=== PATIENT | male | born 2005 | race Caucasian/White ===

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

== ENCOUNTER 2024-07-11 23:06 | Emergency (ER) | payer OTHER, SELFPAY ==
--- NOTE | ~2024-07-11 | XR_ITS ---
EXAMINATION: XR shoulder RT min 2V DATE: 07/12/2024 01:27 INDICATION: Postreduction right glenoid humeral dislocation TECHNIQUE: AP, Grashey and transscapular Y views of the right shoulder were obtained. COMPARISON: None FINDINGS: Successful reduction of the previously anteriorly dislocated right glenohumeral joint which is now in normal alignment. No fracture. Again seen are lucencies along the anterior glenoid suggesting prior labral repair. Acromioclavicular joint is normal. Soft tissues are unremarkable. Right lung is clear no pleural effusion or pneumothorax. IMPRESSION: Successful reduction to normal alignment of the previously dislocated right glenohumeral joint. Reviewed, dictated and finalized at location A. D DOUGH MIXER IMPRESSION: Successful reduction to normal alignment of the previously dislocated right gle nohumeral joint.
--- NOTE | ~2024-07-11 | XR_ITS ---
EXAMINATION: XR shoulder RT min 2V DATE: 07/12/2024 00:30 INDICATION: Right shoulder dislocation TECHNIQUE: AP, Grashey and transscapular Y views of the right shoulder were obtained. COMPARISON: Right shoulder MRI dated 09/09/2021 FINDINGS: There is anterior dislocation of the right glenohumeral joint. No acute fractures identified. There a re lucencies projecting over the anterior right glenoid suggesting prior repair of a torn labrum iden tified on prior MRI. Acromioclavicular joint is normal. IMPRESSION: 1. Anterior right glenohumeral dislocation with changes of likely prior anterior labral repair. Reviewed, dictated and finalized at location A. INE PRINTER HOSE IMPRESSION: 1. Anterior right glenohumeral dislocation with changes of likely prior anterio r labral repair.
[2024-07-11 23:11] VITALS: BP 134/77; PULSE 99; RESP 16; TEMP 36.8; O2SAT 96
[2024-07-12] MEDS: HYDROcodone/acetaminophen (*CRX) 5-325 MG TABLET 1 TAB PO (01:02)
[2024-07-12] MEDS: LIDO 1%/EPINEPHRINE 1:100,000 20 ML VIAL 10 ML INFILTRATE (01:07)
--- NOTE | 2024-07-12 01:12 | PC.NURSE ---
Time out completed at bedside with patient prior to block.
--- NOTE | 2024-07-12 01:34 | ED.GENADULT ---
HPI - General Adult General Chief complaint: Extremity Injury, Upper Stated complaint: r shoulder injury Time Seen by Provider: 07/12/24 00:56 History of Present Illness HPI narrative: This is a 19-year-old male presenting with right shoulder pain. Patient was pretend fighting and through fake punch and then felt shoulder fall out of position. He has had this happen before during a hockey game. No other injuries. No weakness to the hand. Related Data Allergies Allergy/AdvReac Type Severity Reaction Status Date / Time No Known Allergies Allergy Verified 07/11/24 23:06 Exam Narrative: APPEARANCE: No apparent distress. Head: atraumatic. EYES: EOMI, NOSE: Atraumatic NECK: Trachea midline RESPIRATORY: No increased rate of breathing CARDIOVASCULAR: RRR, ABDOMINAL: Non-distended MUSCULOSKELETAl: Patient is holding his right arm lymph against his body, concave deformity of the anterior shoulder, no numbness over the lateral deltoid, Radian ulnar median nerve distributions intact. Pulses intact. NEURO: Alert. Moving 4/4 extremities SKIN:: Warm, dry. Normal color PSYCHIATRIC: Normal affect Course Vital Signs Vital signs: Vital Signs Temperature 98.2 F 07/11/24 23:11 Pulse Rate 99 07/11/24 23:11 Respiratory Rate 16 07/11/24 23:11 Blood Pressure 134/77 07/11/24 23:11 Pulse Oximetry 96 07/11/24 23:11 Oxygen Delivery Room Air 07/11/24 23:11 Temperature 98.2 F 07/11/24 23:11 Pulse Rate 99 07/11/24 23:11 Respiratory Rate 16 07/11/24 23:11 Blood Pressure 134/77 07/11/24 23:11 Pulse Oximetry 96 07/11/24 23:11 Oxygen Delivery Room Air 07/11/24 23:11 Procedures Orthopedic Joint Reduction Joint #1: Orthopedic Joint Reduction Date: 07/12/24 Time Out Performed: Yes Side: right Joint Reduction Location: shoulder Analgesia: nerve block Pre-Procedure Neuro Vascular Exam: normal Local Anesthesia: lidocaine 1% and with epi Amount of anesthesic used (mL): 5 Shoulder Technique Used (if applicable): traction/counter-traction Technique used: traction/counter-traction Post-reduction neuro exam: intact Post-reduction vascular: intact Post Reduction X-Ray Obtained: Yes Post Reduction X-Ray Results: reduced Splint Applied: Yes Patient Tolerated Procedure: well Medical Decision Making [facility] Narrative Medical decision making narrative: -Course: 19-year-old male presenting with shoulder dislocation. His interscalene block performed shoulder was reduced using traction counter traction. Patient tolerated procedure well he has no complications or neurologic deficits. Patient discharged with follow-up. Vital Signs Vital Signs: Vital Signs Temperature 98.2 F 07/11/24 23:11 Pulse Rate 99 07/11/24 23:11 Respiratory Rate 16 07/11/24 23:11 Blood Pressure 134/77 07/11/24 23:11 Pulse Oximetry 96 07/11/24 23:11 Oxygen Delivery Room Air 07/11/24 23:11 Temperature 98.2 F 07/11/24 23:11 Pulse Rate 99 07/11/24 23:11 Respiratory Rate 16 07/11/24 23:11 Blood Pressure 134/77 07/11/24 23:11 Pulse Oximetry 96 07/11/24 23:11 Oxygen Delivery Room Air 07/11/24 23:11 Discharge Plan Discharge Clinical Impression: Dislocation of shoulder region Patient Disposition: Home, Self-Care Condition: Stable Instructions: Antibiotic Form, Shoulder Dislocation (ED) Additional Instructions: Please use Motrin Tylenol Robaxin for pain control. Please follow-up with your orthopedic surgeon in 1 week for re-evaluation. Do not use your arm until cleared by Orthopedic surgery. Patient Language: Kazakh Prescriptions: New ibuprofen 800 mg tablet 800 mg PO TID PRN (Reason: pain) 7 Days Qty: 21 0RF acetaminophen 500 mg tablet 1,000 mg PO TID PRN (Reason: olayinka) 7 Days Qty: 42 0RF methocarbamol 750 mg tablet 1,500 mg PO TID Qty: 35 0RF Follow-up/Referrals: Corky Ingram MD [Physician] - 1 Week (Shoulder dislocation ) Andrew Mcbride MD [Primary Care Provider] -
[2024-07-12 02:11] VITALS: BP 131/71; PULSE 104; RESP 18; O2SAT 97
--- OUTSIDE RECORDS SUMMARY | 2024-07-19 01:13 | XMS_ITS | Encounter Summary ---
Author Organization [facility] Address [address] [place] [address] Care Team Providers Care Coal Handler Name Role Phone Andrew Kirkland MD Primary Care Provider [phone] Reason for Visit * Reason Onset Date Comments Insurance Issue/question 02/11/2011 Encounter Details Date Type Department Care Team (Late st Contact Info) Description 02/11/2011 Telephone [facility] Pediatrics - Surgery [address] [place] [address] [place] [address] [facility] [address] [id number] Insurance Issue/question Social History Tobacco Use Types Packs/Day Years Used Date Smoking Tobacco: Never Alcohol Use Standard Drinks/Week Comments No 0 (1 standard drink = 0.6 oz pur e alcohol) Sex and Gender Information Value Date Recorded Sex Assigned at Not on file Gender Identity Not on file Sexual Orientation Not on file documented as of this encounter Miscellaneous Notes * Telephone Encounter - Tati Escudero - 02/11/2011 9:12 AM CDT Spoke with Sasha at [facility] on 02-11-11 re: 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 According to Sasha, neither pre-certification, nor pre-authorization is required for this procedure. Tati 02-11-11 documented in this encounter Plan of Treatment Not on file documented as of this encounter Visit Diagnoses Not on filedocumented in this encounter Care Teams Coal Handler Relationship Specialty Start Date End Date Andrew Kirkland MD [address] [place] [phone] PCP - General 12/02/10 documented as of this encounter
--- OUTSIDE RECORDS SUMMARY | 2024-07-19 01:13 | XMS_ITS | Encounter Summary ---
Author Organization [facility] Address [address] [place] [address] Care Team Providers Care Platform Architect Name Role Phone Andrew Kirkland MD Primary Care Provider [phone] Reason for Visit * Reason Comments Pain Hip Encounter Details Date Type Department Care Team (Latest Contact Info) Description 12/02/2010 2:30 PM CDT - 12/02/2010 2:35 PM CDT Hospital Encounter [facility] - [facility] [address] [facility] [place], [place] [id number] Discharge Disposition: Home or Self Care Social History Tobacco Use Types Packs/Day Years Used Date Smoking Tobacco: Never Alcohol Use Standard Drinks/Week Comments No 0 (1 standard drink = 0.6 oz pur e alcohol) Sex and Gender Information Value Date Recorded Sex Assigned at Not on file Gender Identity Not on file Sexual Orientation Not on file documented as of this encounter Discharge Instructions * Patient Instructions* Osei Miguel PA-C - 12/02/2010 4:13 PM CDT ORTHOPAEDIC CLINIC DISCHARGE INSTRUCTIONS SHEET Follow Up: As needed only -call if you would like to proceed with Physical Therapy May continue with PE, sports, and all activities as tolerated. School excuse: 12/02/2010 Tylenol and Ibuprofen (over the counter medication) may be used per instructions. If you have any questions or concerns in the interim, or if you need to schedule surgery for your child, you may contact our orthopedic office at . If you need to make a clinic appointment, please call . documented in this encounter Progress Notes * Heather Jaramillo MD - 12/02/2010 3:23 PM CDT 12/02/2010 HISTORY: Gavin Farris is a 5 y.o. 8 m.o. male who presents for evaluation of right hip pain. he is accompanied by his mom and report that this started approximately 8 month(s) ago. There was not a history of an injury. Mom states that he started playing hockey about 8 months ago, and he has pain inthe right hip after he is done playing hockey, or while participating in any strenuous activities. He denies having any pain at rest or with regular walking. Mom states that he has always turned his right foot in, and is concerned that this may be causing his hip pain. He is here today for further evaluation. The patient rates his pain as a 0 out of 10. The patient denies new onset of numbness inhis lower extremities. PAST MEDICAL HISTORY: No past medical history on file. PAST SURGICAL HISTORY: No past surgical history on file. MEDICATIONS: No current outpatient prescriptions on file. ALLERGIES: Allergies as of 12/02/2010 ??? (No Known Allergies) IMMUNIZATIONS: Immunization status: stated as current, but no records available. SOCIAL HISTORY: Patient lives with his parents. he does attend school. FAMILY HISTORY: Negative for any genetic conditions affecting children. ROS: A 12 point review of systems was obtained today and is positive for what is stated above. PHYSICAL EXAM: Patient is well-developed, well-nourished and in no acute distress. Breathing is non-labored and there are no audible wheezes. Head and trunk control are appropriate. The patient ambulates throughout the office with a symmetric heel-to-toe gait without a limp. Examination of the lower extremities reveals no obvious deformity or malalignment. The patient has symmetric and full rangeof motion of both knees and ankles. There was a negative straight leg raise bilaterally. Evaluation of the uninjured left hip noted no skin lesions, neurovascularly intact. There was no tenderness/swelling/deformity. Ligamentously stable. Painless hip range of motion. No snapping. Negative impingement. The right lower extremity is neurovascularly intact with no active skin lesions. There is no swelling. There is no tenderness throughout the right hip today. There is unrestricted hip internal rotation (50 degrees). There is unrestricted hip external rotation (40 degrees). Anterior impingement testis negative. Posterior impingment is negative. There is no hip laxity. There is no snapping with hip active and passive circumduction. There is no pain with logrolling the hip. There is no tendernessin the inguinal region. The distal neurovascular examination is intact in the lower extremities. RADIOGRAPHS: AP and frog lateral pelvis film shows no abnormalities ASSESSMENT: Right hip pain PLAN: The family was reassured that his xrays and exam are normal today. They were offered a courseof Physical Therapy for some lower body strengthening exercises, but prefer to hold off on this at this time. He will continue with his regular activities and will call or return to clinic if his pain should increase. They will also call if they decide to proceed with PT. They will follow up PRN. * Liss Diaz RN - 12/02/2010 2:46 PM CDT Pt here for evaluation hip pain and leg/feet pain. documented in this encounter Procedure Notes * Document, Scanned - 12/12/2010 8:17 PM CDTAssociated Order(s): IMAGING/RADIOLOGY/XRAY RESULTS ORDER documented in this encounter Miscellaneous Notes * Miscellaneous Scans - Document, Scanned - 03/03/2011 8:15 AM CDT documented in this encounter Plan of Treatment Not on file documented as of this encounter Procedures Procedure Name Priority Date/Time Associated Diagnosis Comments IMAGING/RADIOLOGY/X RAY RESULTS ORDER 12/12/2010 8:17 PM CDT documented in this encounter Results * IMAGING/RADIOLOGY/XRAY RESULTS ORDER (12/12/2010 8:17 PM CDT) Anatomical Region Laterality Modality Other Narrative Procedure Note Document, Scanned - 12/12/2010 8:17 PM CDT Scanned Document IMAGING documented in this encounter Visit Diagnoses Diagnosis Right hip pain Pain in joint, pelvic region and thigh documented in this encounter Care Teams Platform Architect Relationship Specialty Start Date End Date Andrew Kirkland MD [address] [place] [phone] PCP - General 12/02/10 documented as of this encounter
--- OUTSIDE RECORDS SUMMARY | 2024-07-19 01:13 | XMS_ITS | Referral Summary ---
Author Organization [facility] Address [address] [place] [address] Care Team Providers Care Continuity Clerk Name Role Phone Andrew Kirkland MD Primary Care Provider [phone] Source Comments [facility],non-owned Affiliates and Associated Physician Practices is amultiple site organization consisting of ambulatory clinics and hospital sitesin [place], [place], [place] and [place]. This disclosure is being madepursuant to the Care Everywhere program and may not contain all information available regarding this patient. Last updated 18.[facility] Allergies No known active allergies Medications * Be aware that medications may not be up to date on this document. Alwaysverify current medications with the patient. Medication Sig Dispensed Refills Start Date End Date Status Pediatric Wlbrbgdt-Mgrhvusw-Q (FLINTSTONES COMPLETE) 60 MG tablet Take 1 Tab by mouth once daily. Active Active Problems No known active problems Social History Tobacco Use Types Packs/Day Years Used Date Smoking Tobacco: Never Alcohol Use Standard Drinks/Week Comments No 0 (1 standard drink = 0.6 oz pur e alcohol) Sex and Gender Information Value Date Recorded Sex Assigned at Not on file Gender Identity Not on file Sexual Orientation Not on file Last Filed Vital Signs Vital Sign Reading Time Taken Comments Blood Pressure 116/72 02/17/2011 11:10 AM CDT Pulse 88 02/17/2011 11:10 AM CDT Temperature 36.3 ??C (97.4 ??F) 02/17/2011 11:10 AM C DT Respiratory Rate 18 02/17/2011 11:10 AM CDT Oxygen Saturation 100% 02/17/2011 11:03 AM CDT Inhaled Oxygen Concentration - - Weight 43.1 kg (95 lb 0.6 oz) 02/17/2011 7:20 AM CDT Height 138.5 cm (4' 6.53 ) 02/17/2011 7:20 AM CD T Body Mass Index 22.47 02/17/2011 7:20 AM CDT Plan of Treatment Not on file Care Teams Continuity Clerk Relationship Specialty Start Date End Date Andrew Kirkland MD [address] [place] [phone] PCP - General 12/02/10
--- OUTSIDE RECORDS SUMMARY | 2024-07-19 01:13 | XMS_ITS | Clinical Summary ---
Author Organization [facility] Address [address] [place] [address] Care Team Providers Care Supervisor Conditioning Yard Name Role Phone Andrew Kirkland MD Primary Care Provider [phone] Source Comments [facility],non-owned Affiliates and Associated Physician Practices is amultiple site organization consisting of ambulatory clinics and hospital sitesin [place], [place], [place] and [place]. This disclosure is being madepursuant to the Care Everywhere program and may not contain all information available regarding this patient. Last updated 18.[facility] Allergies No known active allergies Medications * Be aware that medications may not be up to date on this document. Alwaysverify current medications with the patient. Medication Sig Dispensed Refills Start Date End Date Status Pediatric Jotajoep-Aswfyiet-B (FLINTSTONES COMPLETE) 60 MG tablet Take 1 Tab by mouth once daily. Active Active Problems No known active problems Family History Medical History Relation Name Comments Anesthesia Reaction Mother cold, sh ivering, weird reaction Osteoporosis Paternal Grandmother Relation Name Status Comments Mother Paternal Grandmother Social History Tobacco Use Types Packs/Day Years [...] 02/17/2011 7:20 AM CDT Plan of Treatment Health Maintenance Due Date Last Done Comments HIV SCREENING 2018 HPV VACCINE (1 - Male 3-dose series) 2018 HEPATITIS C SCREENING 03/12/2021 DTAP/TDAP/TD VACCINES (1 - Tdap) 2022 HEPATITIS B VACCINE (1 of 3 - 19+ 3-dose series) 2022 DEPRESSION SCREENING 07/12/2023 COVID-19 VACCINE (1 - 2023-2 5 season) 2024 INFLUENZA VACCINE (#1) 2024 ZOSTER VACCINE (1 of 2) 2053 HIB VACCINE Aged Out No longer eligi ble based on patient's age to complete this topic MENINGOCOCCAL VACCINE Aged Out No van magali eligible based on patient's age to complete this topic PNEUMOCOCCAL VACCINE Aged Out No long er eligible based on patient's age to complete this topic Care Teams Supervisor Conditioning Yard Relationship Specialty Start Date End Date Andrew Kirkland MD [address] [place] [phone] PCP - General 12/02/10
--- OUTSIDE RECORDS SUMMARY | 2024-07-19 01:13 | XMS_ITS | Encounter Summary ---
Author Organization [facility] Address [address] [place] [address] Care Team Providers Care Traffic Maintenance Officer Name Role Phone Andrew Kirkland MD Primary Care Provider [phone] Encounter Details Date Type Department Care Team (Latest Contact Info) Description 12/02/2010 2:36 PM CDT - 12/02/2010 11:59 PM CDT Hospital Encounter [facility] Pediatrics - Orthopedics [facility] [facility] [place] [address] Heather Jaramillo MD Orthopedics Discharge Disposition: Home or Self Care Social History Tobacco Use Types Packs/Day Years Used Date Smoking Tobacco: Never Alcohol Use Standard Drinks/Week Comments No 0 (1 standard drink = 0.6 oz pur e alcohol) Sex and Gender Information Value Date Recorded Sex Assigned at Not on file Gender Identity Not on file Sexual Orientation Not on file documented as of this encounter Plan of Treatment Not on file documented as of this encounter Visit Diagnoses Diagnosis Other acquired deformity of toe documented in this encounter Care Teams Traffic Maintenance Officer Relationship Specialty Start Date End Date Andrew Kirkland MD [address] [place] [address] PCP - General 12/02/10 documented as of this encounter
--- OUTSIDE RECORDS SUMMARY | 2024-07-19 01:13 | XMS_ITS | Encounter Summary ---
Author Organization [facility] Address [address] [facility] [place] [address] Care Team Providers Care Calciner Operator Helper Name Role Phone Andrew Kirkland MD Primary Care Provider [phone] Reason for Visit * Reason Onset Date Comments Insurance Issue/question 02/09/2011 Encounter Details Date Type Department Care Team (Late st Contact Info) Description 02/09/2011 Telephone [facility] Pediatrics - Surgery [address] [place] [address] [place] [id number] [facility] [address] [phone] Insurance Issue/question Social History Tobacco [...] * Telephone Encounter - Tati Escudero - 02/09/2011 1:54 PM CDT Spoke with Kristen at [facility] [employer] re: removal of Malherb's tumor, 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 According to Kristen, the provided policy number is incorrect; therefore, unable to determine preauthorization status. Will contact patient to confirm insurance company name, as well aspolicy number. Tati 02-09-11 documented in this encounter Plan of Treatment Not on file documented as of this encounter Visit Diagnoses Not on filedocumented in this encounter Care Teams Calciner Operator Helper Relationship Specialty Start Date End Date Andrew Kirkland MD [address] [place] [phone] PCP - General 12/02/10 documented as of this encounter
--- OUTSIDE RECORDS SUMMARY | 2024-07-19 01:13 | XMS_ITS | Encounter Summary ---
Author Organization [facility] Address [address] [place] [address] Care Team Providers Care Cdl Program Coordinator Name Role Phone Andrew Kirkland MD Primary Care Provider [phone] Reason for Visit * Reason Comments Cyst cyst present to left arm for 1 1/2 months Encounter Details Date Type Department Care Team (Latest Contact Info) Description 01/29/2011 8:54 AM CDT - 01/29/2011 11:59 PM CDT Hospital Encounter [facility] Pediatrics - Surgery [address] [place] [id number] Discharge Disposition: Home or Self Care Social [...] this encounter Discharge Instructions * Patient Instructions* Lennox Modi MD - 01/29/2011 9:15 AM CDT Pediatric Surgery Instructions [phone] ?? Aracely or Esequiel will call within a week of being seen, and schedule your child's surgery date. ?? The Same Day Surgery Nurse will call you one week before surgery with the eating and drinking instuctions, arrival time, where to come, and approximate surgery time. ?? If you haven't heard from the Same Day Nurse by 4:00pm one week before surgery, please call themdirect at [phone] for the information. ?? Know that your child will be able to have clear liquids up until a certain time, which will be told to you by the Same Day Surgery Nurse. ?? Infants will be able to have pedialyte. Buy this as soon as you know when your child's surgery is scheduled. ?? Older children will be able to have clear liquids which include: water, jello (without any fruit), white soda, popsicles, and apple juice. NO BROTH! ?? It is extremely important that you DO NOT feed your child after the time told to you by the nurse. ?? Please follow all directions that will be given to you by the Same Day Surgery Nurse. Failure todo so may cause your child's surgery to be cancelled! ?? DO NOT give any medicines containing the following for seven days before your child's scheduled operative date: ?? Ibuprofen (Advil, Motrin, Genpril, Ibu-200, Nurpin, NeoProfen and Midol of any type.) ?? Naproxen (Aleve, Midol of any type, Pamprin Maximum, Naprosyn, and Anaprox, etc.) ?? Aspirin (Sandi, Escorting, Bond's Aspirin, Arthritis Pain, Aspergum, Aspirin Lite Coat, Sandi Aspirin, Bufferin, Easprin, Ecotrin, Zorrin and Buffering etc.) ?? Your child MAY have acetaminophen (Tylenol, etc) during this time. ?? If your child is on any of these medications on a daily basis, please call your Surgeon to receive specific instructions. ?? If your child is seen by the firearms assembly supervisor/ 2-3 days prior to surgery for a sick child visit and is diagnosed with a rash, strep throat, ear infection, skin infection or lung congestion, please call our office. It is possible that the operation may need to be rescheduled to a time when your child is healthy. ?? You will receive a flyer in the mail for a reminder of surgery date and instructions. ?? Please remove all fingernail georgian and all jewelry/piercing/metal containing hair accessories the night before you come into the hospital. ?? One legal guardian (who must be present with the patient the day of surgery) and one adult are allowed in the patient's room. Please make other arrangements for other children. ?? Children must bathe or shower with soap the night before surgery. ?? Children cannot brush his/her teeth the morning of surgery. ?? Children cannot eat hard candy or have chewing gum the morning of surgery. ?? documented in this encounter Progress Notes * Lennox Modi MD - 01/29/2011 10:03 AM CDT Gavin presents with a 1cm2 mass on his left arm. 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 I recommend removal as an outpatient. H&Pperformed today show no contraindications to that plan. During the H&P a small plaque over the left tonsil was noted. This is not tender. I recommend that this be re-examined at his next primary care visit which is in about 1-2 months. documented in this encounter H&P Notes * Lennox Modi MD - 01/29/2011 10:02 AM CDT Pediatric General Surgery History and Physical Encounter Date: @ENCDATE@ Patient's Primary Care Physician: Andrew Kirkland MD Name: Gavin Farris Age: 5 y.o. Race: white, Sex: male Date: 01/29/2011 Chief Complaint/History of Present Illness Gavin presentw sith a complainft of a small mass on his left arm. Tis initially appeared to be a bugbite but grew. IT has ruptured through trauma or irritation adn the superior portion appears smaller to mom. The mass has irregular edges No past medical history on file. No past surgical history on file. Family History Problem Relation Age of Onset ??? Osteoporosis Paternal Grandmother Social History Occupational History ??? Not on file. Social History Main Topics ??? Smoking status: Never Smoker ??? Smokeless tobacco: Not on file ??? Alcohol Use: No ??? Drug Use: No ??? Sexually Active: No (Not in a hospital admission) No Known Allergies Review of Systems Constitutional: Negative Eyes: Negative Ears, nose, mouth, and throat: Negative Respiratory: Negative Cardiovascular: Negative Gastrointestinal: Negative Genitourinary:Negative Skin: Negative except for a lesion on his left arm that has been present for several weeks. Breast: Negative Hematologic/lymphatic: Negative Musculoskeletal:Negative Neurological: Negative Behavioral/Psych: Negative Endocrine: Negative Exam There were no vitals filed for this visit. General appearance: alert, cooperative, no distress Head: Normocephalic, without trauma Eyes: sclera and conjunctiva clear, EOMI and PERRLA, lids normal Ears: canals clear, tympanic membranes normal, hearing intact to voice Nose: nares open; no septal deviation is noted Throat: Small white plaque on left tonsil. Not tender otherwise no mucous membrane abnormalities Neck: range of motion is intact, no masses, thyroid not enlarged, no adenopathy Nodes: no cervical, axillary or inguinal adenopathy Back: no deformity or tenderness Chest: no tenderness, breasts not enlarged Lungs: breath sounds normal and symmetric; no rales or wheezes Heart: regular rhythm, normal S1 and S2, without murmurs, gallops or rubs Abdomen: soft without mass, non-tender, with normal bowel sounds Male Genitalia: normal male phallus; no testicular masses; no inguinal hernias Rectal: sphincter tone normal, no masses; prostate not enlarged Extremities: no clubbing, cyanosis or edema 1cm 2 irregular mass on left arm. Some irritation over the mass. 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 As an outpatient. Follow-up with firearms assembly supervisor re:tonsillar plaque in 1-2 months. documented in this encounter Consult Notes * Lennox Modi MD - 01/29/2011 9:56 AM CDT Pediatric General Surgery History and Physical Encounter Date: @ENCDATE@ Patient's Primary Care Physician: Andrew Kirkland MD Name: Gavin Farris Age: 5 y.o. Race: white, Sex: male Date: 01/29/2011 Chief Complaint/History of Present Illness Gavin noblesh a complainft of a small mass on his left arm. Tis initially appeared to be a bugbite but grew. IT has ruptured through trauma or irritation adn the superior portion appears smaller to mom. The mass has irregular edges No past medical history on file. No past surgical history on file. Family History Problem Relation Age of Onset ??? Osteoporosis Paternal Grandmother Social History Occupational History ??? Not on file. Social History Main Topics ??? Smoking status: Never Smoker ??? Smokeless tobacco: Not on file ??? Alcohol Use: No ??? Drug Use: No ??? Sexually Active: No (Not in a hospital admission) No Known Allergies Review of Systems Constitutional: Negative Eyes: Negative Ears, nose, mouth, and throat: Negative Respiratory: Negative Cardiovascular: Negative Gastrointestinal: Negative Genitourinary:Negative Skin: Negative except for a lesion on his left arm that has been present for several weeks. Breast: Negative Hematologic/lymphatic: Negative Musculoskeletal:Negative Neurological: Negative Behavioral/Psych: Negative Endocrine: Negative Exam There were no vitals filed for this visit. General appearance: alert, cooperative, no distress Head: Normocephalic, without trauma Eyes: sclera and conjunctiva clear, EOMI and PERRLA, lids normal Ears: canals clear, tympanic membranes normal, hearing intact to voice Nose: nares open; no septal deviation is noted Throat: Small white plaque on left tonsil. Not tender otherwise no mucous membrane abnormalities Neck: range of motion is intact, no masses, thyroid not enlarged, no adenopathy Nodes: no cervical, axillary or inguinal adenopathy Back: no deformity or tenderness Chest: no tenderness, breasts not enlarged Lungs: breath sounds normal and symmetric; no rales or wheezes Heart: regular rhythm, normal S1 and S2, without murmurs, gallops or rubs Abdomen: soft without mass, non-tender, with normal bowel sounds Male Genitalia: normal male phallus; no testicular masses; no inguinal hernias Rectal: sphincter tone normal, no masses; prostate not enlarged Extremities: no clubbing, cyanosis or edema 1cm 2 irregular mass on left arm. Some irritation over the mass. 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 As an outpatient. Follow-up with firearms assembly supervisor re:tonsillar plaque in 1-2 months. documented in this encounter Miscellaneous Notes * Miscellaneous Scans - Document, Scanned - 04/15/2011 4:00 PM CDT documented in this encounter Plan of Treatment Not on file documented as of this encounter Visit Diagnoses Not on filedocumented in this encounter Care Teams Cdl Program Coordinator Relationship Specialty Start Date End Date Andrew Kirkland MD [address] [place] [phone] PCP - General 12/02/10 documented as of this encounter
--- OUTSIDE RECORDS SUMMARY | 2024-07-19 01:13 | XMS_ITS | Patient Health Summary ---
Author Organization [facility] Address [address] [place] [address] Care Team Providers Care Pulverizer Operator Name Role Phone Andrew Kirkland MD Primary Care Provider [phone] Note from [facility],non-owned Affiliates and Associated Physician Practices is amultiple site organization consisting of ambulatory clinics and hospital sitesin [place], [place], [place] and [place]. This disclosure is being madepursuant to the Care Everywhere program and may not contain all information available regarding this patient. Last updated 18.[facility] Allergies No known active allergies Medications * Be aware that medications may not be up to date on this document. Alwaysverify current medications with the patient. * Pediatric Gnsydihh-Uutgeccp-E (FLINTSTONES COMPLETE) 60 MG tablet Take 1 Tab by mouth once daily. Active Problems No known active problems Social [...] Mass Index 22.47 02/17/2011 7:20 AM CDT Procedures * PATHOLOGY/CYTOLOGY REPORT ORDER(Performed 04/15/2011) * GROSS + MICRO EXAM(Performed 02/17/2011) * IMAGING/RADIOLOGY/XRAY RESULTS ORDER(Performed 12/12/2010) Results * PATHOLOGY/CYTOLOGY REPORT ORDER (04/15/2011 7:44 PM CDT) Narrative 04/15/2011 7:44 PM CDT A scan was deleted from the Results section by S Interface [[id number]] on 04/15/2011 at ??7:44 PM (File: [id number]) Transcriptions Document, Scanned - 04/15/2011 7:44 PM CDT Scanned Document LAB - PATHOLOGY/CYTO LOGY ORDERABLES * GROSS + MICRO EXAM (02/17/2011 10:00 AM CDT) [facility] Clinical History [facility] Comment: The patient is a 5-year-old boy who underwent excision of a pilomatrixoma from the left arm. Gross Description [facility] Comment: Submitted fresh in one container for gross and microscopic examination labeled with the patient's name, Gavin Farris, and pilomatrixoma left arm is a 1.2 x 0.5 cm ellipse of yellow-ramos skin and subcutaneous tissue excised to a depth of 1 cm. ??A 0.3 cm ulcerated area extends from the center of the skin surface to the margin. ??The specimen is bisected, and cut surface reveals yellow-white, flaky, calcified tissue deep to the epidermis. ??Also submitted in the same container is a 0.3 x 0.3 x 0.2 cm fragment of yellow-ramos soft tissue. ??The specimen is entirely submitted in cassette A1 . ??(CT/ld) ?? Microscopic Examination [facility] Comment: 1 H+E. Sections show hair-bearing skin and subcutis. ??The epidermis shows acanthosis and hypergranulomatosis overlying a dermis expanded by nests of basaloid cells, many of which are necrotic with focal dystrophic calcification, associated with foreign body giant cell reaction. ??The subcutis is unremarkable. ??(DSB) Diagnosis [facility] Comment: DIAGNOSIS: SKIN AND SOFT TISSUE, LEFT ARM, EXCISION: -PILOMATRIXOMA (CALCIFYING EPITHELIOMA OF MALHERBE). This case has been personally reviewed and interpreted by the attending (teaching) pathologist. Inspector Rag Sorting MATEO CEJA , [facility] Pathologist Marques Lange M.D. [facility] Electronically Signed By Francine TROTTER. [facility] PILOMATRIXOMA / Unknown 02/17/2011 10:00 AM CDT 02/17/2011 10:44 AM CDT Lennox Modi MD LAB - PATHOLOGY/CYTO LOGY ORDERABLES Performing Organization Address City/State/[facility] Co de Phone Number [facility] [address] [place] [address] * IMAGING/RADIOLOGY/XRAY RESULTS ORDER (12/12/2010 8:17 PM CDT) Anatomical Region Laterality Modality Other Narrative Procedure Note Document, Scanned - 12/12/2010 8:17 PM CDT Scanned Document IMAGING Care Teams Pulverizer Operator Relationship Specialty Start Date End Date Andrew Kirkland MD [address] [place] [address] PCP - General 12/02/10
--- OUTSIDE RECORDS SUMMARY | 2024-07-19 01:13 | XMS_ITS | Encounter Summary ---
Author Organization [facility] Address [address] [place] [address] Care Team Providers Care Networking Administrator Name Role Phone Andrew Kirkland MD Primary Care Provider [phone]- [phone] Reason for Visit * Reason Comments Surgical Follow-up malherbs tumor Encounter Details Date Type Department Care Team (Latest Contact Info) Description 03/04/2011 9:30 AM CDT - 03/04/2011 11:59 PM CDT Hospital Encounter [facility] Pediatrics - Surgery [address] [place] [address] Discharge Disposition: Home or Self Care Social History Tobacco Use Types Packs/Day Years Used Date Smoking Tobacco: Never Alcohol Use Standard Drinks/Week Comments No 0 (1 standard drink = 0.6 oz pur e alcohol) Sex and Gender Information Value Date Recorded Sex Assigned at Not on file Gender Identity Not on file Sexual Orientation Not on file documented as of this encounter Medications at Time of Discharge Medication Sig Dispensed Refills Start Date End Date Pediatric Cutuecgp-Bxommyoc-D (FLINTSTONES COMPLETE) 60 MG tablet Take 1 Tab by mouth once daily. documented as of this encounter Progress Notes * Lennox Modi MD - 03/04/2011 10:04 AM CDT Gavin is status post excision of a piliomatrixoma of his left arm. The incision is healed but a bit red. This is probably secondary to his initial excision as the tumor had been scratched open. In anycase it should continue healing without incident. I plan to see him back on a PRN basis. * Benjamin Bowers MD - 03/04/2011 9:52 AM CDT Pediatric Surgery Clinic Visit Gavin Farris 5 y.o. male 2005 Andrew Kirkland MD Reason for visit: F/u excision left arm lesion. Afebrile, no complaints Exam There were no vitals taken for this visit. LUE: wound clean dry and intact, healing well, small area or erythema surrounding wound Pathology: PILOMATRIXOMA (CALCIFYING EPITHELIOMA OF MALHERBE) Assessment/Plan: 5 y/o male s/p LUE lesion excision -Wound healing well -Benign tumor, pilomatrixoma -f/u PRN Patient seen and discussed with Dr. Modi. Benjamin Bowers MD 03/04/2011 9:52 AM * Lennox Modi MD - 03/04/2011 9:52 AM CDT I reviewed the chart of this child, have seen and examined this patient and agree with above note as amended by me. documented in this encounter Miscellaneous Notes * Miscellaneous Scans - Document, Scanned - 04/29/2011 9:18 PM CDT documented in this encounter Plan of Treatment Not on file documented as of this encounter Visit Diagnoses Not on filedocumented in this encounter Care Teams Networking Administrator Relationship Specialty Start Date End Date Andrew Kirkland MD [address] [place] [phone] PCP - General 12/02/10 documented as of this encounter
--- OUTSIDE RECORDS SUMMARY | 2024-07-19 01:13 | XMS_ITS | Encounter Summary ---
Author Organization [facility], [facility] Address [address] [place] [address] Care Team Providers Care Data Processing Clerk Name Role Phone Andrew Kirkland MD Primary Care Provider [phone] Encounter Details Date Type Department Care Team (Latest Contact Info) Description 02/17/2011 7:01 AM CDT - 02/17/2011 11:49 AM CDT Hospital Encounter [address] [address] [place] [address] [facility] [address] [address] Surgery General Discharge Disposition: Home or Self Care Social History Tobacco Use Types Packs/Day Years Used Date Smoking Tobacco: Never Alcohol Use Standard Drinks/Week Comments No 0 (1 standard drink = 0.6 oz pur e alcohol) Sex and Gender Information Value Date Recorded Sex Assigned at Not on file Gender Identity Not on file Sexual Orientation Not on file documented as of this encounter Last Filed Vital Signs Vital Sign Reading Time Taken Comments Blood Pressure 116/72 02/17/2011 11:10 AM CDT Pulse 88 02/17/2011 11:10 AM CDT Temperature 36.3 ??C (97.4 ??F) 02/17/2011 1 1:10 AM CDT Respiratory Rate 18 02/17/2011 11:1 0 AM CDT Oxygen Saturation 100% 02/17/2011 11: 03 AM CDT Inhaled Oxygen Concentration - - Weight 43.1 kg (95 lb 0.6 oz) 02/17/2011 7:20 AM CDT Height 138.5 cm (4' 6.53 ) 02/17/2011 7:20 AM CD T Body Mass Index 22.47 02/17/2011 7:20 AM CDT Body Mass Index Percentile 97.40% 02/17/2011 7:2 0 AM CDT Growth Chart: [facility] (Boys, 2-2 0 Years) documented in this encounter Discharge Summaries * Benjamin Bowers MD - 02/17/2011 10:29 AM CDT Images from the original note were not included. SAME DAY SURGERY DISCHARGE SUMMARY Patient ID: Gavin Farris [id number] 5 y.o. 2005 Discharge Date: Discharge Diagnoses: 1. Benign neoplasm of skin, site unspecified Discharge Condition: Stable Diet: ad rossy Activity: ad rossy Discharge Medication: Current Discharge Medication List START taking these medications Details cephALEXin (KEFLEX) 250 MG capsule Take 1 Cap by mouth 4 times daily for 5 days. Qty: 20 Cap, Refills: 0 acetaminophen (TYLENOL) 325 MG tablet Take 1 Tab by mouth every 4 hours as needed for Fever or Pain. Maximum allowable Acetaminophen amount = 4 Grams (4000 mg) / 24 hours. Qty: 50 Tab, Refills: 0 CONTINUE these medications which have NOT CHANGED Details Pediatric Rxbjnfln-Ijdqhbkb-L (FLINTSTONES COMPLETE) 60 MG tablet Take 1 Tab by mouth once daily. Discharge: home Follow-Up: Dr [facility], 14 days Benjamin Bowers MD 02/17/2011 10:30 AM documented in this encounter Discharge Instructions * Discharge Instructions* Cookie Lucio RN - 02/17/2011 11:20 AM CDT Follow up in [address] Lennox Modi MD. Call [phone] for appointment time. Do not remove dressing in 5 days. May shower in 1 days. Do not bathe, swim, or immerse in water until seen in clinic. Return to ER or call [phone] and page pediatric surgery resident if develop severe pain, nausea, vomiting, or fever > 101.0 F. While Gavin was with us he received the following medications: Ancef (to prevent infection) Fentanyl (for sedation) Propofol (for sedation) Toradol (for inflammation) Tylenol (for pain) Last pain med given at 11:00 May repeat at 3:00 * Discharge Instructions* Document, Scanned - 04/15/2011 7:44 PM CDT documented in this encounter Medications at Time of Discharge Medication Sig Dispensed Refills Start Date End Date Pediatric Dawmvtdd-Ybboacta-W (FLINTSTONES COMPLETE) 60 MG tablet Take 1 Tab by mouth once daily. acetaminophen (TYLENOL) 325 MG tablet Take 1 Tab by mouth every 4 hours as needed for Fever or Pain. Maximum allowable Acetaminophen amount = 4 Grams (4000 mg) / 24 hours. 50 Tab 0 02/17/2011 03/04/2011 cephALEXin (KEFLEX) 250 MG capsule Take 1 Cap by mouth 4 times daily for 5 days. 20 Cap 0 02/17/2011 02/22/2011 documented as of this encounter Progress Notes * Nina Womack MD - 02/17/2011 11:06 AM CDT POST-OP ANESTHESIA EVALUATION Gavin Farris is Post Op from Scheduled Procedure Scheduled procedure: Remove Malherbs Tumor Left Arm The patient is sufficiently recovered from the acute administration of the anesthesia so as to participate in the evaluation or neurologic status has returned to pre-operative or expected level of consciousness. The post-anesthesia assessment was completed based upon the elements below. The patient is stable and has adequately recovered from anesthesia unless otherwise noted. Post-op Evaluation: Temp: 98.4 ??F Pulse: 72 Resp: 20 SpO2: 100 % BP: 110/74 mmHg Pain Rating Score #: 0 Resp function: Natural Airway Cardiac Function: Stable Mental Status : Awake/Alert Pain: Comfortable / acceptable Nausea / Vomiting: None Post Procedure Hydration: Adequate Other complications A post-op evaluation was performed on the patient with the following assessment: No Apparent Anesthesia Complications;Vital Signs and Mental Status unchanged from Preop Unless otherwise indicated, the patient is being discharged from anesthesia care. 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 The lesion was open and appeared inflamed. We started him on antibiotics to try to prevent a wound infection but since it had been disrupted this is still a significant issue with this wound. We will see him back in two weeks for recheck and are sending him home oin antibiotics. * Teodora Gordon CRNA - 02/17/2011 7:56 AM CDT Gavin Farris 5 y.o. male : 2005 PRE-ANESTHESIA EVALUATION Scheduled Procedure Scheduled procedure: Remove Malherbs Tumor Left Arm There is no problem list on file for this patient. Allergies Review of patient's allergies indicates no known allergies. Meds Prescriptions prior to admission Medication Sig Dispense Refill ??? Pediatric Jncrhwpv-Lmupgusl-J (FLINTSTONES COMPLETE) 60 MG tablet Take 1 Tab by mouth once daily. No current facility-administered medications for this encounter. Past Medical History Diagnosis Date ??? Other abnormal clinical finding malherb's tumor left arm Past Surgical History Procedure Date ??? Negative surgical history Family History Problem Relation Age of Onset ??? Osteoporosis Paternal Grandmother ??? Anesthesia Reaction Mother cold, shivering, weird reaction Labs:No results found for this basename: WBC,HGB,HCT,PLTCOUNT in the last 24656 hoursNo results found for this basename: SODIUM,POTASSIUM,CLORIDE,CO2,BUN,CREATININE,GLUCOSE in the last 91208 hoursNo r esults found for this basename: PT,INR,PTT in the last 02495 hours Test:No results found for this basename: HCGURINE,HCGQUAL in the last 24151 hours VITAL SIGNS Temp: 97.7 ??F Pulse: 76 Resp: 20 BP: 115/64 mmHg Weight: 43.11 kg (95 lb 0.6 oz) Height: 138.5 cm (4' 6.53 ) SpO2: 99 % Pre-Eval ExamPHYSICAL EXAM NPO status: (water 0555 / solid 2030) Heart Sounds: S1 S2 Respiratory Pattern/Effort: CTA Oriented x 3: (very intelligent, interactive (said he had a piliomatrixoma)) Teeth: Ok Airway Class: I ANESTHESIA ASA: I Anesthesia Choices: General Post-Op: PACU PRE-EVAL REVIEW I have reviewed all previously documented physician evaluations: Yes Patient prefers Mask flavor: watermelon I have discussed anesthesia with the parents, Eliane and Shad Farris including possible complications and techniques. He/She/They understand(s) and consent(s). * Nina Womack MD - 02/17/2011 7:56 AM CDT I have personally reviewed the patient's condition and agree with the above evaluation and anesthetic plan. documented in this encounter H&P Notes * Benjamin Bowers MD - 02/17/2011 7:45 AM CDT Pediatric General Surgery History and [...] left arm. As an outpatient. Follow-up with command post superintendent re:tonsillar plaque in 1-2 months. H&P update: HD stable Site marked Consent in chart Ready for surgery Benjamin Bowers MD 02/17/2011 7:46 AM * Lennox Modi MD - 02/17/2011 7:45 AM CDT I reviewed the chart of this child, have seen and examined this patient and agree with above note as amended by me. documented in this encounter Procedure Notes * Document, Scanned - 04/15/2011 7:44 PM CDTAssociated Order(s): PATHOLOGY/CYTOLOGY REPORT ORDER documented in this encounter OR Notes * Operative - Lennox Modi MD - 02/17/2011 10:19 AM CDT PEDIATRIC SURGERY OPERATIVE NOTE Patient name: Gavin Farris Date of Procedure: 02/17/2011 Preoperative diagnosis: malherbs tumor Postoperative diagnosis: malherbs tumor Procedure performed: excision of malherbs tumor Surgeon: Dr. 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 male with a left forearm malherbs tumor. We have discussed the potential benefits versus risks of the operation and the parents wish to proceed. Findings: epithelial lesion. Procedure: The patient was brought into the operating room and transferred to the operating table. The patient underwent general anesthetic induction and intubation without complication. After optimal positioning and padding of all pressure points in the prone position, the relevant areas were prepped and draped in standard fashion. An elliptical incision incorporating the left forearm lesion was taken down to fascia. The incisionmeasured 1.5 cm in length. The specimen was fully excised and placed in a plastic container for pathology. The specimen measured 1.1 cm in diameter. Local was infiltrated. Hemostasis was ensured, andthe deep fascia was closed with a 4-0 Vicryl. Skin was closed with 5-0 Monocryl. The patient was ext ubated and taken to the recovery room in satisfactory condition. Dr. Modi was present for the entirety of the procedure. Complications: none EBL: 20 cc Specimens: malherbs tumor Benjamin Bowers MD 02/17/2011 10:21 AM documented in this encounter Miscellaneous Notes * Miscellaneous Scans - Document, Scanned - 04/15/2011 7:44 PM CDT * Miscellaneous Scans - Document, Scanned - 04/15/2011 7:44 PM CDT * Miscellaneous Scans - Document, Scanned - 04/15/2011 7:44 PM CDT * Miscellaneous Scans - Document, Scanned - 04/15/2011 7:44 PM CDT * Miscellaneous Scans - Document, Scanned - 03/03/2011 7:52 AM CDT documented in this encounter Plan of Treatment Not on file documented as of this encounter Procedures Procedure Name Priority Date/Time Associated Diagnosis Comments PATHOLOGY/CYTOLOGY REPORT ORDER 04/15/2011 7:44 PM CDT GROSS + MICRO EXAM Routine 02/17/2011 10 :00 AM CDT documented in this encounter Results * PATHOLOGY/CYTOLOGY REPORT ORDER (04/15/2011 7:44 PM CDT) Narrative 04/15/2011 7:44 PM CDT A scan was deleted from the Results section by S Interface [[id number]] on 04/15/2011 at ??7:44 PM (File: [id number]) Transcriptions Document, Scanned - 04/15/2011 7:44 PM CDT Scanned Document LAB - PATHOLOGY/CYTO LOGY ORDERABLES * GROSS + MICRO EXAM (02/17/2011 10:00 AM CDT) [facility] Clinical History [facility] Comment: The patient is a 5-year-old boy who underwent excision of a pilomatrixoma from the left arm. Gross Description [facility] Comment: Submitted fresh in one container [...] cassette A1 . ??(CT/ld) ?? Microscopic Examination [facility] Comment: 1 H+E. Sections show hair-bearing skin and subcutis. ??The epidermis shows acanthosis and hypergranulomatosis overlying a dermis expanded by nests of basaloid cells, many of which are necrotic with focal dystrophic calcification, associated with foreign body giant cell reaction. ??The subcutis is unremarkable. ??(DSB) Diagnosis [facility] Comment: DIAGNOSIS: SKIN AND SOFT TISSUE, LEFT ARM, EXCISION: -PILOMATRIXOMA (CALCIFYING EPITHELIOMA OF MALHERBE). This case has been personally reviewed and interpreted by the attending (teaching) pathologist. Livestock Rancher MATEO CEJA , [facility] Pathologist Marques Lange M.D. [facility] Electronically Signed By Francine TROTTER. [facility] PILOMATRIXOMA / Unknown 02/17/2011 10:00 AM CDT 02/17/2011 10:44 AM CDT Lennox Modi MD LAB - PATHOLOGY/CYTO LOGY ORDERABLES Performing Organization Address City/State/[facility] Co de Phone Number [facility] [address] [place] [phone] documented in this encounter Visit Diagnoses Diagnosis Benign neoplasm of skin, site unspecified documented in this encounter Administered Medications Inactive Administered Medications - up to 3 most recent administrations Medication Order MAR Action Action Date Dose Rate Site acetaminophen (TYLENOL) solution 650 mg 650 mg (15.1 mg/kg = 15 mg/kg ? 43.1 kg), Oral, POST-OP MULTIPLE, Starting on Wed02/17/11 at 1027, Until Wed02/17/11 at 2349, Every 6 hours prn fever $ Given 02/17/2011 11:21 AM CDT 650 mg isolyte-S pH 7.4 infusion 100 mL/hr, Intravenous, POST-OP CONTINUOUS, Starting on Wed02/17/11 at 1015, Until Wed02/17/11 at 2349 Current Rate 02/17/2011 10:23 AM CDT 100 mL/hr 100 mL/hr midazolam (VERSED) solution 12 mg 12 mg (0.278 mg/kg), Oral, PRE-OP ONCE, 1 dose $ Given 02/17/2011 8:40 AM CDT 12 mg documented in this encounter Active and Recently Administered Medications Times are shown in CDT. Scheduled Medication Order 02/15/2011 02/16/2011 02/17/2011 acetaminophen (TYLENOL) solution 650 mg (CANCELED) 650 mg (15.1 mg/kg = 15 mg/kg ? 43.1 kg), Oral, POST-OP MULTIPLE, Starting on Wed02/17/11 at 1027, Until Wed02/17/11 at 2349, Every 6 hours prn fever 1121 ($ Given - Prov ider: Cookie Lucio RN) midazolam (VERSED) solution 12 mg (COMPLETED) 12 mg (0.278 mg/kg), Oral, PRE-OP ONCE, 1 dose 0840 ($ Given - Prov ider: Annamarie Masters RN) Continuous Medication Order 02/15/2011 02/16/2011 02/17/2011 isolyte-S pH 7.4 infusion (CANCELED) 100 mL/hr, Intravenous, POST-OP CONTINUOUS, Starting on Wed02/17/11 at 1015, Until Wed02/17/11 at 2349 1023 (Current Rate - Provider: Nehal Mims RN - Comment: Continued OR IVF)1146 (Stopped - Provider: Cookie Lucio RN) documented in this encounter Care Teams Data Processing Clerk Relationship Specialty Start Date End Date Andrew Kirkland MD [address] [place] [address] PCP - General 12/02/10 documented as of this encounter
--- OUTSIDE RECORDS SUMMARY | 2024-07-19 01:13 | XMS_ITS | Encounter Summary ---
Author Organization [facility] Address [address] [place] [address] Care Team Providers Care Aircraft Mechanic Armament Name Role Phone Andrew Kirkland MD Primary Care Provider [phone] Encounter Details Date Type Department Care Team (Latest Contact Info) Description 01/29/2011 12:01 AM CDT - 01/29/2011 8:53 AM CDT Hospital Encounter [facility] Pediatrics - Surgery [address] [place] [address] [place] [address] [facility] [address] [address] Surgery General Discharge Disposition: Home [...] on filedocumented in this encounter Care Teams Aircraft Mechanic Armament Relationship Specialty Start Date End Date Andrew Kirkland MD [address] [place] [phone] PCP - General 12/02/10 documented as of this encounter
--- OUTSIDE RECORDS SUMMARY | 2024-07-19 01:14 | XMS_ITS | Encounter Summary ---
Author Organization [facility] Address [address] [place] [address] Care Team Providers Care Blood Bank Specialist Name Role Phone No, Physician Primary Care Provider [phone] Encounter Details Date Type Department Care Team (Late st Contact Info) Description 09/16/2021 Telephone [facility] Orthopedics and Sports Medicine [address] [place] [address] Ankit Guerrero MD [address] [facility] [address] [place] [address] Social History Tobacco Use Types Packs/Day Years Used Date Smoking Tobacco: Never Smokeless Tobacco: Never Sex and Gender Information Value Date Recorded Sex Assigned at Not on file 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 [employer] Gender Identity Not on file Sexual Orientation Not on file documented as of this encounter Miscellaneous Notes * Telephone Encounter - Marsha Ramos MA - 09/16/2021 4:21 PM CST I just called [facility] and requested the report. This will be scanned in once we receive it. H SCIENCE FACULTY MEMBER * Telephone Encounter - Jodee Ya - 09/16/2021 4:16 PM CST Mother, Eliane, calling to get MRI results. Her [phone]. Called [facility] and they are faxing report to us so we can scan and Danii Montejo can call parents with results. H SCIENCE FACULTY MEMBER documented in this encounter Plan of Treatment Not on file documented as of this encounter Visit Diagnoses Not on filedocumented in this encounter Care Teams Blood Bank Specialist Relationship Specialty Start Date End Date No, Physician PCP - General 08/21/21 09/28/21 documented as of this encounter
--- OUTSIDE RECORDS SUMMARY | 2024-07-19 01:14 | XMS_ITS | Encounter Summary ---
Author Organization [facility] Healthcare Address [address] [place] [address] Care Team Providers Care Ice Skating Coach Name Role Phone No, Physician Primary Care Provider [phone] GustaboDaniiDebby PA Unavailable [phone] Encounter Details Date Type Department Care Team (Late st Contact Info) Description 09/29/2021 11:50 AM CDT - 09/29/2021 2:10 PM CDT Surgery [facility] Operating Room [address] [place] [address] Ankit Guerrero MD [address] [place] [address] DR HAND B [address] [address] Right shoulder arthroscopy, with labral repair, capsulorrhaphy Surgery Details Date/Time Status Location OR Service Patient Class Case Class Case Type Trauma Case? 09/29/2021 11:50 AM Posted [facility] OPERATING RO[facility] OR Orthopaedics Outpatient Elective Panel 1 Procedure LRB Anes Op Region Wound Class Comments Right shoulder arthroscopy, with labral repair, capsulorrhaphy Right General with other Regional Shoulder Class I - Clean on q pain pump Surgeon Surgeon Role Service Panel Ankit Guerrero MD Primary Orthopaedics 1 Special Needs arthroscopy equipment, lateral position, NMES, Spider, polar care, Labral tape x 8 and Arthrex passers available documented in this encounter Social History Tobacco Use Types Packs/Day Years Used Date Smoking Tobacco: Never Smokeless Tobacco: Never AUDIT-C Answer Date Recorded Q1: How often do you have a drink containing alc ohol? Never 09/26/2021 Average Number of Drinks Not on file 022 Frequency of Binge Drinking Not on file 09/09 Sex and Gender Information Value Date Recorded Sex Assigned at Not on file 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 [employer] Gender Identity Not on file Sexual Orientation Not on file documented as of this encounter Last Filed Vital Signs Vital Sign Reading Time Taken Comments Blood Pressure 141/84 09/29/2021 2:10 PM CDT Pulse 93 09/29/2021 2:10 PM CDT Temperature 36.7 ??C (98.1 ??F) 09/29/2021 1:59 PM CD T Respiratory Rate 17 09/29/2021 2:10 PM CDT Oxygen Saturation 100% 09/29/2021 2:10 PM CDT Inhaled Oxygen Concentration - - Weight 99.2 kg (218 lb 11.1 oz) 022 10:03 AM CDT Height 188 cm (6' 2 ) 09/29/2021 10:03 AM CDT Body Mass Index 28.08 09/29/2021 10:03 AM CDT Body Mass Index Percentile 92.51% 09/29 10:03 AM CDT Growth Chart: [facility] (Boys, 2-2 0 Years) documented in this encounter Discharge Instructions * Attachments The following attachments cannot be sent through Care Everywhere. * General Anesthesia in Pediatrics (Discharge Care) (Serbian) * Peripheral Nerve Block (Discharge Care) (Serbian) * Ascorbic Acid (Vitamin C) (By mouth) (Serbian) * Cholecalciferol (By mouth) (Serbian) * Clindamycin (By mouth) (Serbian) * Ondansetron (By mouth, Into the mouth) (Serbian) * Oxycodone/Acetaminophen (By mouth) (Serbian) * Senna (By mouth) (Serbian) documented in this encounter Medications at Time of Discharge clindamycin (CLEOCIN) 300 mg capsule Take 1 capsule (300 mg total) by mouth 3 (three) times a day for 3 days 9 capsule 09/29/2021 2 ascorbic acid (VITAMIN C) 500 mg tablet,chewable Take 1 tablet/chew tab (500 mg total) by mouth 2 (two) times a day 60 tablet/chew tab 09/29/2021 2 cholecalciferol (VITAMIN D-3) 2000 unit capsule Take 1 capsule (2,000 Units total) by mouth daily 30 capsule 09/29/2021 2 ondansetron (ZOFRAN) 4 mg tablet Take 1 tablet (4 mg total) by mouth every 8 (eight) hours as needed for nausea or vomiting 10 tablet 09/29/2021 2 oxyCODONE-acetam inophen (PERCOCET) 5-325 mg per tabletIndication s:Pain Take 1-2 tablets every 4-6 hours as needed for pain 33 tablet 09/29/2021 2 senna-docusate (PERICOLACE) 8.6-50 mg 1-2 times daily as needed for constipation 20 tablet 09/29/2021 2 documented as of this encounter Ordered Prescriptions Prescription Sig Dispense Quantity Refills Last Filled Start Date End Date clindamycin (CLEOCIN) 300 mg capsule Take 1 capsule (300 mg total) by mouth 3 (three) times a day for 3 days 9 capsule 09/29/2021 2 ondansetron (ZOFRAN) 4 mg tablet Take 1 tablet (4 mg total) by mouth every 8 (eight) hours as needed for nausea or vomiting 10 tablet 09/29/2021 2 senna-docusate (PERICOLACE) 8.6-50 mg 1-2 times daily as needed for constipation 20 tablet 09/29/2021 2 oxyCODONE-acetami nophen (PERCOCET) 5-325 mg per tabletIndications :Pain Take 1-2 tablets every 4-6 hours as needed for pain 33 tablet 09/29/2021 2 cholecalciferol (VITAMIN D-3) 2000 unit capsule Take 1 capsule (2,000 Units total) by mouth daily 30 capsule 09/29/2021 2 ascorbic acid (VITAMIN C) 500 mg tablet,chewable Take 1 tablet/chew tab (500 mg total) by mouth 2 (two) times a day 60 tablet/chew tab 09/29/2021 2 documented in this encounter Discharge Disposition Disposition Code Departure Means Destination Discharge to home or self care documented in this encounter H&P Notes * Ankit Guerrero MD - 09/29/2021 11:00 AM CDT I have reviewed the H&P, examined the patient, and endorse the findings as written. Plan of Care : Based on the above findings, I consider Gavin Farris to be an acceptable risk for : Procedure(s): Right shoulder arthroscopy, capsulorrhaphy Source Note - Ankit Guerrero MD - 09/26/2021 8:45 AM CDT Images from the original note were not included. NEW PATIENT VISIT This patient has been reviewed and COVID-19 risk has been assessed. Based on our clinical judgement, we find it appropriate to see this patient in clinic today. Our staff performed proper precautionsand wore appropriate PPE when caring for this patient in office today. Both myself and the patient wore a mask throughout the visit. The patient understands current COVID-19 risks and wished to be seen today. Subjective CHIEF COMPLAINT He had concerns including Follow-up of the Right Shoulder. HISTORY OF PRESENT ILLNESS Right shoulder dislocation 1 month ago the pain is not gotten worse. He still has mild pain is painis dull and mild. Activity rest makes it better. Straining on comfortable position makes it worse his pain is unpredictable he has had physical therapy MR arthrogram confirmed a labral tear he is here for surgical consultation with his father. Merchandising Manager completed by using M*Modal Fluency Direct speaking software, therefore, transcriptionvariances may occur. Pain Assessment Pain Assessment: 0-10 Pain Score: 2 PAST MEDCIAL HISTORY He has no past medical history on file. PAST SURGICAL HISTORY He has no past surgical history on file. MEDICATIONS He currently has no medications in their medication list. ALLERGIES He has No Known Allergies. SOCIAL HISTORY He reports that he has never smoked. He has never used smokeless tobacco. FAMILY HISTORY His family history is not on file. REVIEW OF SYSTEMS Review of Systems Constitutional: Negative for activity change, appetite change, chills and fever. HENT: Negative for congestion, dental problem, ear pain, hearing loss and voice change. Eyes: Negative for pain and visual disturbance. Respiratory: Negative for apnea, cough, chest tightness and shortness of breath. Cardiovascular: Negative for chest pain, palpitations and leg swelling. Gastrointestinal: Negative for blood in stool, constipation, diarrhea, nausea and vomiting. Endocrine: Negative for cold intolerance and heat intolerance. Genitourinary: Negative for difficulty urinating and hematuria. Skin: Negative for color change, rash and wound. Allergic/Immunologic: Negative for environmental allergies. Neurological: Negative for dizziness, syncope, numbness and headaches. Hematological: Negative for adenopathy. Does not bruise/bleed easily. Psychiatric/Behavioral: Negative for confusion. The patient is not nervous/anxious and is not hyperactive. Objective PHYSICAL EXAM BP 126/67 Pulse 69 Ht 188 cm (6' 2 ) Wt 98.4 kg (217 lb) BMI 27.86 kg/m?? Right shoulder Inspection Erythema: absent Edema: present Effusion: absent Swelling: mild Atrophy: absent Surgical scar/wound: absent. Posture, chin forward: normal Posture, rounded shoulders: normal Palpation Tenderness is present. The patient has tenderness in the aneterior shoulder and posterior shoulder area(s). Range of motion The patient has reduced range of motion of the right shoulder. The patient has pain with range of motion of the right shoulder. Passive forward flexion: 90 degrees. Passive external rotation at 0 degrees: 50 degrees. The patient has pain with passive external rotation at 0 degrees of the right shoulder. Passive abduction: 90 degrees. Strength The patient has 5/5 strength throughout with exceptions as noted below. Neurovascular The patient has normal vascular on the right side of his body. He has normal sensation on the right side of his body. Tests Apprehension: positive Left shoulder The patient has normal inspection, palpation, range of motion, strength, and stability of the left shoulder. REVIEW OF X-RAYS/STUDIES/LABS Four views of the right shoulder are reviewed and interpreted. ??No acute fracture, subluxation/dislocation, or destructive osseous lesions. ??Joint effusion is appreciated. ??Patient is near skeletal maturity; remaining physes are preserved Assessment/Plan Gavin was seen today for follow-up. Diagnoses and all orders for this visit: Glenoid labral tear, right, initial encounter Procedures PLAN I discussed the nature of the patient's condition in the clinic today. The patient has failed conservative treatment for Posterior labrum tear includiing physical therapy. We discussed arthroscopic labrum repair. Risks and benefits of the procedure were discussed the patient to include bleeding, infection, damage to surrounding structures including nerves and vessels, persistent stiffness and possible fracture. The patient understood these risks and agreed to proceed with surgery as described above and informed consent was established in the office today. SELENA Cloud MD documented in this encounter Miscellaneous Notes * Op Note - Ankit Guerrero MD - 09/29/2021 12:35 PM CDT Images from the original note were not included. Operative Report SURGEON: Ankit Guerrero MD Certified Nutritionist: Geraldine Tapia RN Physician Bird Trapper: Danii Montejo PA Scrub: Selene Smith ST RNFA: Flory Monsalve RN SURGICAL TEAM: Surgeon(s) and Role: * Ankit Guerrero MD - Primary DATE OF SURGERY : 09/29/2021 PREOPERATIVE DIAGNOSIS: See preoperative H and P POSTOPERATIVE DIAGNOSIS: Post-op Diagnosis * Glenoid labral tear, right, initial encounter [S43.431A] PROCEDURE: Right shoulder arthroscopy, with labral repair, capsulorrhaphy (R) ANESTHESIA: General with other Regional IMPLANTS: Implant Name Type Inv. Item Serial No. Youth Agent Lot No. LRB No. Used Action [employer] [id number] FIBERLINK [employer]THREX SUTURETAPE 1.3MM TAPE SUTURE NONABSORBABLE - [id number] [employer] [id number] Fiberlink Arthrex Suturetape 1.3mm Tape Suture Nonabsorbable [employer] Right 4 Implanted [employer] [id number] ANCHOR SUTURE 2.4MM PUSHLOCK BIOCOMPOSITE 11.3MM 1 FIBERWIRE - [id number] [employer] [id number] [place] Suture 2.4MM Pushlock Biocomposite 11.3MM 1 Fiberwire [employer] [id number] 1 Implanted [employer] [id number] ANCHOR SUTURE 2.4MM PUSHLOCK BIOCOMPOSITE 11.3MM 1 FIBERWIRE - [id number] [employer] [id number] [place] Suture 2.4MM Pushlock Biocomposite 11.3MM 1 Fiberwire [employer] [id number] 1 Implanted [employer] [id number] ANCHOR SUTURE 2.4MM PUSHLOCK BIOCOMPOSITE 11.3MM 1 FIBERWIRE - [id number] [employer] [id number] [place] Suture 2.4MM Pushlock Biocomposite 11.3MM 1 Fiberwire [employer] [id number] 1 Implanted [employer] [id number] ANCHOR SUTURE 2.4MM PUSHLOCK BIOCOMPOSITE 11.3MM 1 FIBERWIRE - [id number] [employer] [id number] [place] Suture 2.4MM Pushlock Biocomposite 11.3MM 1 Fiberwire [employer] [id number] 1 Implanted Estimated Blood Loss: No blood loss documented. Operation in detail: Patient taken OR general set was performed he is placed in lateral position axillary roll was placed all extremities well-padded right upper extremities prepped draped sterile technique placed in spider arm wong with a lateral check. Standard time-out was performed upper extremity identified alsomarked properly. Marked out bony landmarks injected posterior capsule with lidocaine with epi diagnostic arthroscopywas performed. Subscapularis intact, anterior labral tear from 12:00 to 6:00 with a cartilage defect at 3:00 a.m. and a labral flap at 6:00 a.m.. Using outside in technique anterior portals placed throughout the subscapularis. Shaver used to debride the unstable labral tissue. The labral elevator rasp was then used to prepare the anterior aspect of the glenoid placed a switching stick posterior posteriorly and a viewing from the anterior cannula placed a posterior cannula. A Passer was then used to passed the 6 o'clock position 1 back to view of the posterior portal pulled the suture through the anterior portal drilled at 5:30 a.m. and placed the 1st anchor. Three distal Passer placed anterior for total of 4 anchors which complete the repair. Shaver was then placed to remove any drill bitdebris. Portals were closed in standard fashion dressings were placed patient extubated recovery in stable condition needle count sponge counts were counts correct in the case postop plan patient will followstandard labral repair protocol Complications: None Condition on Discharge from the operating room was stable Ankit Guerrero MD Merchandising Manager completed by using EATON Direct speaking software, therefore, transcriptionvariances may occur. Date: 09/29/2021 Time: 1:28 PM * Perioperative Nursing Note - Мария Ruth RN - 09/26/2021 1:36 PM CDT Covid screening on 09-27-21 at the [place] location. * Pre-Procedure Instructions - Мария Ruth RN - 09/26/2021 1:28 PM CDT We are pleased that you and your doctor have chosen [facility] for your surgery. We hope that the following information will help make your visit a pleasant one. Surgery Date: 09/29/2021 Before your surgery: ?? Notify your doctor of ANY change in your health such as a cold, sore throat, fever, any infection or a change in the problem for which you are having your surgery. ?? Follow any instructions given to you by your doctor or surgeon. Check with your doctor if you need to STOP taking: ?? Aspirin (ordered by your doctor) ?? Plavix ?? Coumadin One week before surgery STOP taking: ?? All herbal supplements ?? Aspirin (not ordered by your doctor) ?? Aleve, Advil, Motrin, Ibuprofen, or other similar medications (Tylenol is okay). 24 hours before your surgery: ?? No smoking or alcoholic drinks. Night before your surgery: ?? Do not eat or drink anything after midnight. ?? Follow surgeon's instructions for anti-bacterial shower night before and morning of surgery. Day of surgery: ?? Do not swallow any water when you brush your teeth. ?? ONLY take these pills with a tiny sip of water. No current outpatient medications on file. ?? Use no make-up, nail albanian, lotions, oils or powders on your skin. ?? Wear comfortable clothes that will not be tight in the area of your surgery. ?? Leave all valuables and jewelry (including all body piercing jewelry) at home. ?? Please bring your a photo ID and insurance cards with you. After your Outpatient Surgery: ?? You must have a responsible adult to drive you home, you will not be allowed to drive or take a cab home. ?? We recommend you have someone stay with you for 24 hours after your surgery. What to bring if you are spending the night with us: ?? Bring toiletry items such as: robe, slippers, toothbrush, toothpaste, brush or comb. ?? Bring contact lens, hearing aids, glass cases and denture container if you use any of these items. ?? The hospital will provide you with a gown. Questions or concerns: ?? If you have any questions or concerns regarding your procedure, contact your surgeon as soon as possible. ?? If you have questions regarding your Pre-Admission Testing, please call us. We can be reached atthe number posted at the top of the page. documented in this encounter Plan of Treatment Not on file documented as of this encounter Procedures Procedure Name Priority Date/Time Associated Diagnosis Comments ARTHROSCOPY SHOULDER 09/29/2021 11:22 AM CDT Glenoid labral tear, right, initial encounter Special Needs arthroscopy equipment, lateral position, NMES, Spider, polar care, Labral tape x 8 and Arthrex passers available documented in this encounter Visit Diagnoses Diagnosis Glenoid labral tear, right, initial encounter- Primary Pre-operative clearance Unspecified pre-operative examination Glenoid labral tear, right, initial encounter documented in this encounter Admitting Diagnoses Diagnosis Glenoid labral tear, right, initial encounter documented in this encounter Administered Medications Inactive Administered Medications - up to 3 most recent administrations Medication Order MAR Action Action Date Dose Rate Site acetaminophen (TYLENOL) tablet 1,000 mg 1,000 mg, oral, Once, On Wed09/29/21 at 1030, For 1 dose, Pre-Op, Indications: Pre-Emptive AnalgesiaIndications:Pre- Emptive Analgesia Given 09/29/2021 10:45 AM CDT 1,000 mg benzoyl peroxide 5 % external liquid topical, Once, On Wed09/29/21 at 1030, For 1 dose, Pre-Op, Apply to affected area: shoulder, Laterality: Right, Indications: Acne VulgarisIndications:Acne Vulgaris Given 09/29/2021 10:45 AM CDT bupivacaine preservative free 0.125 % in On-Q reservoir 640 ML 6 mL/hr, perineural, Continuous, Starting on Wed09/29/21 at 1115, Pre-Op, Do NOT squeeze the On-Q pump. Make sure tubing clamp is open. If the tubing appears kinked/crimped, massage area of tubing to facilitate flow. Make sure the dressing over the catheter site remains clean and dry. Do NOT remove remove dressing as this may dislodge the catheter. If wound drainage is present and/or dressing is not secure, reinforce and call MD. Do NOT tape over the in-line filter. This can affect flow rate. Do NOT use cold therapy or ice around the infuser. To be started during procedure., Catheter Site: Interscalene, Catheter Side: Right, Indications: Postoperative PainIndications:Postopera tive Pain New Bag 09/29/2021 2:23 PM CDT 6 mL/hr 6 mL/hr celecoxib (CeleBREX) capsule 200 mg 200 mg, oral, Once, On Wed09/29/21 at 1030, For 1 dose, Pre-Op, Indications: Pre-Emptive AnalgesiaIndications:Pre- Emptive Analgesia Given 09/29/2021 10:45 AM CDT 200 mg clindamycin (CLEOCIN) 900 mg/50 mL in dextrose 5% (premix) 900 mg 900 mg, intravenous, Once, On Wed09/29/21 at 1030, For 1 dose, Pre-Op, Indications: Prophylaxis, SurgicalIndications:Proph ylaxis, Surgical New Bag 09/29/2021 10:45 AM CDT 900 mg EPINEPHrine 3 mg in Lactated Ringer's (LR) 3,000 mL irrigation solution irrigation, Once, On Wed09/29/21 at 1030, For 1 dose, Intra-Op, Bag #1 Given 09/29/2021 12:38 PM CDT 3,000 mL Surgical Site EPINEPHrine 3 mg in Lactated Ringer's (LR) 3,000 mL irrigation solution irrigation, Once, On Wed09/29/21 at 1030, For 1 dose, Intra-Op, Bag #2 Given 09/29/2021 12:38 PM CDT 3,000 mL Surgical Site Lactated Ringer's (LR) infusion 30 mL/hr, intravenous, Continuous, Starting on Wed09/29/21 at 1030, Pre-Op New Bag 09/29/2021 1:21 PM CDT Rate/Dose Verify 09/29/2021 11:41 AM CDT 30 mL/ hr New Bag 09/29/2021 10:45 AM CDT 30 mL/hr 30 mL/hr Lactated Ringer's (LR) irrigation As needed, Starting on Wed09/29/21 at 1321, Intra-Op Given 09/29/2021 1:21 PM CDT 5,000 mL Surgical Site lidocaine EPINEPHrine (XYLOCAINE with EPI) 0.5 %-1:200,000 injection As needed, Starting on Wed09/29/21 at 1329, Intra-Op, Indications: Administration of Local AnesthesiaIndications:Administrat ion of Local Anesthesia Given 09/29/2021 1:29 PM CDT 16 mL Surgical Site documented in this encounter Active and Recently Administered Medications Times are shown in CDT. Scheduled Medication Order 09/27/2021 09/28/2021 09/29/2021 acetaminophen (TYLENOL) tablet 1,000 mg (COMPLETED) 1,000 mg, oral, Once, On Wed09/29/21 at 1030, For 1 dose, Pre-Op, Indications: Pre-Emptive Analgesia 1045 (Given - Provid er: Alivia Rowley RN) benzoyl peroxide 5 % external liquid (COMPLETED) topical, Once, On Wed09/29/21 at 1030, For 1 dose, Pre-Op, Apply to affected area: shoulder, Laterality: Right, Indications: Acne Vulgaris 1045 (Given - Provid er: Alivia Rowley RN) ceFAZolin (ANCEF) 1 gram/10 mL in sterile water (premix) 2,000 mg (COMPLETED) 2,000 mg, intravenous, at 400 mL/hr, Administer over 3 Minutes, Once, On Wed09/29/21 at 1030, For 1 dose, Pre-Op, Administer within 60 minutes of incision., Indications: Prophylaxis, Surgical 1234 (Given - Provid er: Jessica Hull CRNA) celecoxib (CeleBREX) capsule 200 mg (COMPLETED) 200 mg, oral, Once, On Wed09/29/21 at 1030, For 1 dose, Pre-Op, Indications: Pre-Emptive Analgesia 1045 (Given - Provid er: Alivia Rowley RN) clindamycin (CLEOCIN) 900 mg/50 mL in dextrose 5% (premix) 900 mg (COMPLETED) 900 mg, intravenous, Once, On Wed09/29/21 at 1030, For 1 dose, Pre-Op, Indications: Prophylaxis, Surgical 1045 (New Bag - Prov ider: Alivia Rowley RN) EPINEPHrine 3 mg in Lactated Ringer's (LR) 3,000 mL irrigation solution (COMPLETED) irrigation, Once, On Wed09/29/21 at 1030, For 1 dose, Intra-Op, Bag #1 1030 (Due)1238 (Give n - Provider: Ankit Guerrero MD) EPINEPHrine 3 mg in Lactated Ringer's (LR) 3,000 mL irrigation solution (COMPLETED) irrigation, Once, On Wed09/29/21 at 1030, For 1 dose, Intra-Op, Bag #2 1030 (Due)1238 (Give n - Provider: Ankit Guerrero MD) Continuous Medication Order 09/27/2021 09/28/2021 09/29/2021 bupivacaine preservative free 0.125 % in On-Q reservoir 640 ML 6 mL/hr, perineural, Continuous, Starting on Wed09/29/21 at 1115, Pre-Op, Do NOT squeeze the On-Q pump. Make sure tubing clamp is open. If the tubing appears kinked/crimped, massage area of tubing to facilitate flow. Make sure the dressing over the catheter site remains clean and dry. Do NOT remove remove dressing as this may dislodge the catheter. If wound drainage is present and/or dressing is not secure, reinforce and call MD. Do NOT tape over the in-line filter. This can affect flow rate. Do NOT use cold therapy or ice around the infuser. To be started during procedure., Catheter Site: Interscalene, Catheter Side: Right, Indications: Postoperative Pain 1423 (New Bag - Prov ider: Ciera Nguyen RN - Comment: Rt. neck block catheter aspirated with no return noted. OnQ ball connected to block catheter. Infusing without difficulty.)2027 (Due: Stopped) Lactated Ringer's (LR) infusion 30 mL/hr, intravenous, Continuous, Starting on Wed09/29/21 at 1030, Pre-Op 1045 (New Bag - Prov ider: Alivia Rowley RN)1141 (Rate/Dose Verify - Provider: Jessica Hull CRNA)1320 (Paused - Provider: Jessica Hull CRNA - Comment: Switch to gravity)1321 (New Bag - Provider: Jessica Hull CRNA)1354 (Anesthesia Volume Adjustment - Provider: Jessica Hull CRNA)202 (Due: Stopped) PRN Medication Order 09/27/2021 09/28/2021 09/29/2021 Lactated Ringer's (LR) irrigation (CANCELED) As needed, Starting on Wed09/29/21 at 1321, Intra-Op 1321 (Given - Provid er: Geraldine Tapia RN) lidocaine EPINEPHrine (XYLOCAINE with EPI) 0.5 %-1:200,000 injection (CANCELED) As needed, Starting on Wed09/29/21 at 1329, Intra-Op, Indications: Administration of Local Anesthesia 1329 (Given - Provid er: Ankit Guerrero MD) documented in this encounter Orders Medications Ordered That Evan ht Not Have Been Administered Count Last Ordered Date First Ordered Date bupivacaine-EPINEPHrine (MAR EDUARD with EPI) 0.25 %-1:200,000 preservative free injection - ADS Override Pull 1 09/29/2021 ceFAZolin (ANCEF) 1 gram/10 mL in sterile water (premix) 2,000 mg 1 09/29/2021 fentaNYL (SUBLIMAZE) 50 mcg/ mL preservative free injection - ADS Override Pull 1 09/29/2021 fentaNYL (SUBLIMAZE) preserv ative free injection 50 mcg 1 09/29/2021 midazolam (VERSED) 2 mg/2 mL preservative free injection - ADS Override Pull 1 09/29/2021 naloxone (NARCAN) 0.4 mg/mL injection 0.04-0.4 mg 1 09/29/2021 ondansetron (ZOFRAN) injection 4 mg 1 09/29 sodium chloride 0.9% flush 0.5-20 mL 1 09/10 Diet Count Last Ordered Date First Orde red Date ADULT DISCHARGE DIET 1 09/29/2021 Nursing Count Last Ordered Date First Orde red Date DISCHARGE ACTIVITY 5 09/29/2021 DISCHARGE CALL PROVIDER 5 09/29/2021 DISCHARGE DRESSING 2 09/29/2021 DISCHARGE INSTRUCTIONS 2 09/29/2021 FOLLOW UP WITH ESTABLISHED PROVIDER 1 09/29 documented in this encounter Care Teams Ice Skating Coach Relationship Specialty Start Date End Date No, Physician PCP - General 09/29/21 12/31/21 Danii Montejo PA Physician Bird Trapper Orthopedic Surgery 09/29/21 documented as of this encounter
--- OUTSIDE RECORDS SUMMARY | 2024-07-19 01:14 | XMS_ITS | Encounter Summary ---
Author Organization [facility] Medical [facility] Address [address] [place] [address] Care Team Providers Care Wordpress Developer Name Role Phone No, Physician Primary Care Provider [phone] GustaboDaniiDebby PA Unavailable [phone] Encounter Details Date Type Department Care Team (Late st Contact Info) Description 10/01/[address] 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 She stated understanding. * Telephone Encounter - Baldo Lemus NP - 10/01/2021 12:49 PM CDT That is not uncommon. Try to make sure the elbow is positioned in the back of the sling. * Telephone Encounter - Marsha Ramos MA - 10/01/2021 11:15 AM CDT Returned mom Eliane's call and let her know note is done. Faxed to number provided. Fax # for nurse [phone]. Eliane stated the patient was saying his elbow is very tender and was wanting to know if this normal for after surgery? * Telephone Encounter - Baldo Lemus NP - 10/01/2021 8:59 AM CDT Yes, that is fine. Please provide. Thanks. * Telephone Encounter - Marsha Ramos MA - 10/01/2021 8:12 AM CDT Okay to do note? * Telephone Encounter - Alivia Paulino MA - 10/01/2021 7:55 AM CDT Mom left a message, patient needs a note for school to get out of class early and have someone to help him with his books. Please call mom for fax number. Mom/[phone] documented in this encounter Plan of Treatment Not on file documented as of this encounter Visit Diagnoses Not on filedocumented in this encounter Care Teams Wordpress Developer Relationship Specialty Start Date End Date No, Physician PCP - General 09/29/21 12/31/21 Danii Montejo PA Physician Arcgis Developer Orthopedic Surgery 09/29/21 documented as of this encounter
--- OUTSIDE RECORDS SUMMARY | 2024-07-19 01:14 | XMS_ITS | Encounter Summary ---
Author Organization [facility] Medical Group Address [address] [place] [address] Care Team Providers Care Detective Homicide Squad Name Role Phone No, Physician Primary Care Provider [phone] Danii Montejo Unavailable [phone] Encounter Details Date Type Department Care Team (Late st Contact Info) Description 09/29/2021 Telephone [facility] Medical Group Orthopedics and Sports Medicine [address] [place] [address] Alivia Paulino MA Social History [...] on file 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 Thank you documented in this encounter Plan of Treatment Not on file documented as of this encounter Visit Diagnoses Not on filedocumented in this encounter Care Teams Detective Homicide Squad Relationship Specialty Start Date End Date No, Physician PCP - General 09/29/21 12/31/21 Danii Montejo PA Physician Patient Assessment Coordinator Orthopedic Surgery 09/29/21 documented as of this encounter
--- OUTSIDE RECORDS SUMMARY | 2024-07-19 01:14 | XMS_ITS | Encounter Summary ---
Author Organization 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 us Ankit Guerrero MD IMG MRI PROCEDURES Final Res ult [facility] documented in this encounter Visit Diagnoses Not on filedocumented in this encounter Care Teams Roll Repairer Relationship Specialty Start Date End Date Andrew Kirkland MD [address] [place] [address] PCP - General Pediatrics 01/01/22 Danii Montejo PA Physician Web Ui Developer Orthopedic Surgery 09/29/21 documented as of this encounter
--- OUTSIDE RECORDS SUMMARY | 2024-07-19 01:14 | XMS_ITS | Encounter Summary ---
Author Organization [facility] Medical Group Address [address] [address] Care Team Providers Care Lead Worker Of Housekeeping And Laundry Name Role Phone GustaboDaniiDebby PA Unavailable [phone] Andrew Kirkland MD Primary Care Provider Reason for Visit * Diagnostic Imaging (Routine) - Closed Specialty Diagnoses / Procedures Referred By Orlando baldwin Referred To Contact Diagnoses Left shoulder pain, unspecified chronicity Procedures XR Shoulder Left 2 or More Views Ankit Guerrero MD [address] [place] [address] [address] [address] Phone: tel: fax: [facility] Referral ID Status Reason Start Date Expiration Date Visits Re quested Visits Authorized [id number] Closed 06/26/2022 07/26/2023 1 1 Encounter Details Date Type Department Care Team (Late st Contact Info) Description 06/26/2022 9:30 AM TECHNICAL CLERK Ancillary Procedure [facility] Medical [facility] Imaging at [address] [phone] Social History Tobacco Use Types Packs/Day Years [...] on file 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 TECHNICAL CLERK Gender Identity Not on file Sexual Orientation Not on file documented as of this encounter Plan of Treatment Not on file documented as of this encounter Procedures Procedure Name Priority Date/Time Associated Diagnosis Comments XR SHOULDER LEFT 2 OR MORE VIEWS Schedule Routine, Read Routine (OP Routine) 06/26/2022 10:16 AM TECHNICAL CLERK Left shoulder pain, unspecified chronicity documented in this encounter Results * XR Shoulder Left 2 or More Views (06/26/2022 10:16 AM TECHNICAL CLERK) Anatomical Region Laterality Modality Upper Extremities, Shoulder Left Digi kelvin Radiography Narrative 06/26/2022 1:35 PM TECHNICAL CLERK Four views left shoulder shows no fracture subluxation or dislocation skeletally mature radiographs normal axillary view us Ankit Guerrero MD IMG XR PROCEDURES Final Resu lt documented in this encounter Visit Diagnoses Not on filedocumented in this encounter Care Teams Lead Worker Of Housekeeping And Laundry Relationship Specialty Start Date End Date Andrew Kirkland MD [address] [place] [address] PCP - General Pediatrics 01/01/22 Danii Montejo PA Physician Golf Club Head Inspector And Adjuster Orthopedic Surgery 09/29/21 documented as of this encounter
--- OUTSIDE RECORDS SUMMARY | 2024-07-19 01:14 | XMS_ITS | Encounter Summary ---
Author Organization [facility] Medical Group Address [address] [address] Care Team Providers Care Elementary School Teacher Name Role Phone No, Physician Primary Care Provider Reason for Visit * Reason Comments Follow-up Encounter Details Date Type Department Care Team (Late st Contact Info) Description 09/26/2021 8:45 AM CDT Office Visit [facility] Medical Group Orthopedic and Sports Medicine 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 (Boys, 2-2 0 Years) documented in this encounter Progress Notes * Ankit Guerrero MD - 09/26/2021 8:45 AM [...] here for surgical consultation with his father. Optimization Engineer completed by using M*Modal Fluency Direct speaking [...] SELENA Cloud MD documented in this encounter Plan of Treatment Not on file documented as of this encounter Visit Diagnoses Diagnosis Glenoid labral tear, right, initial encounter- Primary documented in this encounter Care Teams Elementary School Teacher Relationship Specialty Start Date End Date No, Physician PCP - General 08/21/21 09/28/21 documented as of this encounter
--- OUTSIDE RECORDS SUMMARY | 2024-07-19 01:14 | XMS_ITS | Encounter Summary ---
Author Organization [facility] Address [address] [address] Care Team Providers Care Trade Mark Examiner Name Role Phone No, Physician Primary Care Provider [phone] Danii Montejo Unavailable [phone] Reason for Visit * Reason Comments Pain Encounter Details Date Type Department Care Team (Late st Contact Info) Description 11/13/2021 1:45 PM CDT Office Visit [facility] Medical [facility] Orthopedic and Sports Medicine [address] [place] [address] Danii Montejo PA [address] [place] [address] [address] Anterior dislocation of right shoulder, sequela (Primary Dx); S/P shoulder surgery; Status post labral repair of shoulder Social History Tobacco Use Types Packs/Day Years [...] on file 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 Gender Identity Not on file Sexual Orientation Not on file documented as of this encounter Last Filed Vital Signs Vital Sign Reading Time Taken Comments Blood Pressure 113/70 11/13/2021 1:55 PM CDT Pulse 79 11/13/2021 1:55 PM CDT Temperature - - Respiratory Rate - - Oxygen Saturation - - Inhaled Oxygen Concentration - - Weight 99.8 kg (220 lb) 11/13/2021 1:55 PM CDT Height 188 cm (6' 2 ) 11/13/2021 1:55 PM CDT Body Mass Index 28.25 11/13/2021 1:55 PM CDT Body Mass Index Percentile 92.70% 11/13/2021 1:5 5 PM CDT Growth Chart: [facility] (Boys, 2-2 0 Years) documented in this encounter Progress Notes * Danii Montejo PA - 11/13/2021 1:45 PM CDT Images from the original note were not included. Post-Op Visit Note HPI: Patient is 6 weeks s/p right shoulder arthroscopy with labral repair. Pain is well controlled. Patient is currently taking nothing for pain. They report compliance with sling and HEP/activity recommendations. He is doing his PT at [facility] and progressing well through his protocol. He discontinued hissling a few days ago. Vital signs: height is 188 cm (6' 2 ) and weight is 99.8 kg (220 lb). His blood pressure is 113/70 and his pulseis 79. Exam: Well approximated healing post operative portal holes. No active erythema, draining, or signs of infection present. Neurovascular status is intact. Full AROM of elbow, wrist and hand. PROM: 120 flexion; 120 scaption; 40 ER in neutral Assessment: Diagnosis Plan 1. Anterior dislocation of right shoulder, sequela Ambulatory referral order to Physical Therapy - 2. S/P shoulder surgery 3. Status post labral repair of shoulder Ambulatory referral order to Physical Therapy - Plan: Procedure, medications and post operative expectations reviewed with patient Will initiate outpatient PT HEP reviewed as were activity restrictions/recommendations Follow up in 6-8 weeks time Questions were answered. Patient expressed full understanding and agreement of plan. Danii Montejo PA-C documented in this encounter Plan of Treatment Not on file documented as of this encounter Visit Diagnoses Diagnosis Anterior dislocation of right shoulder, sequela- Primary S/P shoulder surgery Other postprocedural status Status post labral repair of shoulder documented in this encounter Discontinued Medications Medication Sig Discontinue Reason Start Date End Da te oxyCODONE-acetaminoph en (PERCOCET) 5-325 mg per tabletIndications:Staci n Take 1-2 tablets every 4-6 hours as needed for pain 09/29/2021 11/13/2021 ondansetron (ZOFRAN) 4 mg tablet Take 1 tablet (4 mg total) by mouth every 8 (eight) hours as needed for nausea or vomiting 09/29/2021 11/13/2021 senna-docusate (PERICOLACE) 8.6-50 mg 1-2 times daily as needed for constipation 09/29/2021 11/13/2021 documented as of this encounter Care Teams Trade Mark Examiner Relationship Specialty Start Date End Date No, Physician PCP - General 09/29/21 12/31/21 Danii Montejo PA Physician Banking Paralegal Orthopedic Surgery 09/29/21 documented as of this encounter
--- OUTSIDE RECORDS SUMMARY | 2024-07-19 01:14 | XMS_ITS | Encounter Summary ---
Author Organization [facility] Medical Group Address [address] [place] [address] Care Team Providers Care Theater Set Production Designer Name Role Phone GustaboDaniiDebby PA Unavailable [phone] Andrew Kirkland MD Primary Care Provider Encounter Details Date Type Department Care Team (Late st Contact Info) Description 07/24/2022 Telephone [facility] Medical [facility] Orthopedics and Sports Medicine [address] [place] [phone] Ankit Guerrero MD [address] [place] [address] [address] [place] [address] Social History Tobacco Use Types Packs/Day Years [...] on file 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 Called and advised patient of POC. He would like to do Physical Therapy when he returns from schoolin the summer. I will send patient a Home Exercise Program to [email or web address] for him to use while at school. FACTURING BAKER * Telephone Encounter - Isha Enriquez - 07/24/2022 11:25 AM CST Pt called and is wanting the results from MRI Please advise and thank you FACTURING BAKER documented in this encounter Plan of Treatment Not on file documented as of this encounter Visit Diagnoses Not on filedocumented in this encounter Care Teams Theater Set Production Designer Relationship Specialty Start Date End Date Andrew Kirkland MD [address] [place] [address] PCP - General Pediatrics 01/01/22 Danii Montejo PA Physician Last Cleaner Orthopedic Surgery 09/29/21 documented as of this encounter
--- OUTSIDE RECORDS SUMMARY | 2024-07-19 01:14 | XMS_ITS | Clinical Summary ---
Author Organization [facility] Address [address] [place] [address] Care Team Providers Care Vp Corporate Development Name Role Phone Danii Montejo Unavailable [phone] Andrew Kirkland MD Primary Care Provider Allergies No known active allergies Medications ibuprofen (ADVIL,MOTRIN) 800 mg tablet Take 1 tablet (800 mg total) by mouth every 6 (six) hours as needed for pain Active Active Problems Problem Noted Date Diagnosed Date Glenoid labral tear, right, initial encounter Overview (09/26/2021): Added automatically from request for surgery [id number] Encounters Date Type Department Care Team Description 07/18/2024 11:30 AM SPACE ENGINEER Office Visit [facility] Medical Group Orthopedic and Sports Medicine [address] [place] [phone] Danii Montejo PA Closed dislocation of right shoulder, initial encounter (Primary Dx) 07/18/2024 11:25 AM SPACE ENGINEER Ancillary Procedure [facility] Medical Group Imaging at [address] [phone] Closed dislocation of right shoulder, initial encounter 07/13/2024 Telephone [facility] Medical [facility] Orthopedics and Sports Medicine [address] [place] [address] [address], [place] [address] George Bañuelos DO 07/12/2024 Ancillary Procedure [facility] Outside Films from Last 3 Months Surgical History Surgery Date Site/Laterality Comments SHOULDER ARTHROSCOPY 09/29/2021 Right Social History Tobacco Use Types Packs/Day Years [...] on file 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 SPACE ENGINEER Gender Identity Not on file Sexual Orientation Not on file Obstetrics History Last Filed Vital Signs Vital Sign Reading Time Taken Comments Blood Pressure 148/89 07/18/2024 11:11 AM SPACE ENGINEER Pulse 68 07/18/2024 11:11 AM SPACE ENGINEER Temperature 36.8 ??C (98.3 ??F) 09/29/2021 3:04 PM CD T Respiratory Rate 16 09/29/2021 4:09 PM CDT Oxygen Saturation 98% 09/29/2021 4:09 PM CDT Inhaled Oxygen Concentration - - Weight 94.8 kg (209 lb) 07/18/2024 11:11 AM SPACE ENGINEER Height 188 cm (6' 2 ) 07/18/2024 11:11 AM SPACE ENGINEER Body Mass Index 26.83 07/18/2024 11:11 AM SPACE ENGINEER Plan of Treatment Health Maintenance Due Date Last Done Comments Depression Screening 2003 Hepatitis C Screening 2003 Meningococcal B Vaccine (2 o f 2 - Risk Bexsero 2-dose series) 01/08/2020 12/11/2019 Regular Well Visit/Exam 18-64 2021 Covid-19 Vaccine (3 - 2023-2 5 season) 2024 01/07/2021, 12/16/2020 Influenza Vaccine (#1) 2024 6, 04/09/2010, 04/11/2009, Additional history exists DTaP/Tdap/Td Vaccine (7 - Td or Tdap) 11/15/2024 11/15/2014, 03/18/2007, 07/29/2004, Additional history exists Pneumococcal vaccine <65 Completed 005, 03/24/2004, 2003, Additional history exists Varicella Vaccines Completed 03/18/2007, 03/24/2004 HPV Vaccines Completed 12/08/2017, 12/0 01/2016, 02/06/2015 Meningococcal Vaccine Completed 12/11/2019, 015 Medical Devices Implanted Type Area Director Of Physical Education Device Identifier Shelf Expiration Date Model / Serial / Lot [employer] Ar-7535 Fiberlink Arthrex Suturetape 1.3mm Tape Suture Nonabsorbable - [id number] Implanted:Qty: 4 on 09/29/2021 by Ankit Guerrero MD at [facility] Right: Shoulder [employer] 03/31/2026 AR-7535 / / [employer] Ar-2922bc [place] Suture 2.4mm Pushlock Biocomposite 11.3mm 1 Fiberwire - [id number] Implanted:Qty: 1 on 09/29/2021 by Ankit Guerrero MD at [facility] Right: Shoulder [employer] 07/11/2023 AR-2922BC / / [id number] [employer] Ar-2922bc [place] Suture 2.4mm Pushlock Biocomposite 11.3mm 1 Fiberwire - [id number] Implanted:Qty: 1 on 09/29/2021 by Ankit Guerrero MD at [facility] Right: Shoulder [employer] 07/11/2023 AR-2922BC / / [id number] [employer] Ar-2922bc [place] Suture 2.4mm Pushlock Biocomposite 11.3mm 1 Fiberwire - [id number] Implanted:Qty: 1 on 09/29/2021 by Ankit Guerrero MD at [facility] Right: Shoulder [employer] 07/11/2023 AR-2922BC / / [id number] [employer] Ar-2922bc [place] Suture 2.4mm Pushlock Biocomposite 11.3mm 1 Fiberwire - [id number] Implanted:Qty: 1 on 09/29/2021 by Ankit Guerrero MD at [facility] Right: Shoulder [employer] 07/11/2023 AR-2922BC / / [id number] Procedures Procedure Name Priority Date/Time Associated Diagnosis Comments XR SHOULDER RIGHT 2 OR MORE VIEWS Schedule Routine, Read Routine (OP Routine) 07/18/2024 11:30 AM SPACE ENGINEER Closed dislocation of right shoulder, initial encounter XR TRANSFER OF OUTSIDE FILMS Routine 07/12/2024 12:00 AM SPACE ENGINEER from Last 3 Months Results * XR Shoulder Right 2 or More Views (07/18/2024 11:30 AM SPACE ENGINEER) Anatomical Region Laterality Modality Upper Extremities, Shoulder Right Digi kelvin Radiography Narrative 07/18/2024 12:34 PM SPACE ENGINEER Radiographs of the right shoulder reviewed and interpreted. ??No acute fractures, dislocation, or destructive osseous lesions are noted. ??When compared with outside emergency department radiographs, there has been successful reduction of his anterior dislocation. ??Small Hill-Sachs deformity of the humeral head is appreciated. us Danii ZHAO IMG XR PROCEDURES Final Result * XR Outside Reference (07/12/2024 12:00 AM SPACE ENGINEER) Narrative [facility] - 07/14/2024 8:07 AM SPACE ENGINEER This order has been auto-finalized and does not contain a result. us Not In File Miscellaneous IMG XR PROCEDURES Bianca l Result [facility] from Last 3 Months Insurance [facility] CHOICE PLUS [facility] CHO[facility] PLUS Care Teams Vp Corporate Development Relationship Specialty Start Date End Date Andrew Kirkland MD [address] [place] [address] PCP - General Pediatrics 01/01/22 Danii Montejo PA Physician Carpenter Mate Orthopedic Surgery 09/29/21
--- OUTSIDE RECORDS SUMMARY | 2024-07-19 01:14 | XMS_ITS | Encounter Summary ---
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 If patient was symptomatic, patient should continue to self isolate until at least 5 days have passed since symptom onset and they have been fever free without the use of fever reducing medications for at least 24 hours. documented in this encounter Plan of Treatment Not on file documented as of this encounter Procedures Procedure Name Priority Date/Time Associated Diagnosis Comments COVID-19 CORONAVIRUS RNA Routine 09/26/2021 2:12 PM CDT Pre-op testing documented in this encounter Results * COVID-19 Coronavirus RNA Nasopharyngeal (09/26/2021 2:12 PM CDT) COVID-19 RNA Not Detected LINDSEY HAGAN Comment: Interpretive Data Synonyms for this test include: PCR and NAAT . ??Testing performed by the [facility] Molecular Infectious Disease Laboratory. The 2018-Novel Coronavirus Assay (COVID-19) Real Time RT-PCR assay is for in vitro diagnostic use under FDA emergency use authorization only. A negative RT-PCR result does not preclude infection with COVID-19 and should not be used as the sole basis for treatment or other patient management decisions. ??Additional sample types have been validated according to CLIA regulations. ?? Current Interpretive Data was last revised on August 15, 2020. Testing performed by: [facility], [address] [place] [address]., [address] First COVID-19 test? No CERNER Comment:Testing performed by : [facility], [address] [place] [address], [address] Employeed in healthcare? No CERNER Comment:Testing performed by : [facility], [address] [place] [address], [address] Group care resident? No PANCHONER Comment:Testing performed by : [facility], [address] [place] [address], [address] Hospitalized? No CERNER Comment:Testing performed by : [facility], [address] [place] [address], [address] Is patient in ICU? No CERNER Comment:Testing performed by : [facility], [address] [place] [address], [address] Symptomatic as defined by CDC? No CERNER Comment:Testing performed by : [address], [address] Nasopharyngeal 09/26/2021 2: 12 PM CDT 09/26/2021 11:45 PM CDT Narrative LINDSEY - 09/27/2021 5:22 AM CDT What is the reason for testing?->Screening prior to scheduled??procedure or surgery??(Batched) us Durga Ryan NP LAB MICROBIOLOGY - GENERAL CATHERINE ROLLINS Final Result LINDSEY [address] [address] Department [place] [address] documented in this encounter Visit Diagnoses Diagnosis Pre-op testing Unspecified pre-operative examination documented in this encounter Care Teams Flooring Helper Relationship Specialty Start Date End Date No, Physician PCP - General 08/21/21 09/28/21 documented as of this encounter
--- OUTSIDE RECORDS SUMMARY | 2024-07-19 01:14 | XMS_ITS | Encounter Summary ---
Author Organization [facility] Address [address] [address] Care Team Providers Care Recoverer Name Role Phone No, Physician Primary Care Provider [phone] Reason for Visit * Reason Comments COVID-19 EVALUATION Pre op Encounter Details Date Type Department Care Team (Latest Contact Info) Description 09/26/2021 2:15 PM CD[address] 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 N95 mask, gown, gloves, and eye protection worn during swab collection. Patient instructed to self-isolate from time of swab collection until scheduled surgery. documented in this encounter Plan of Treatment Not on file documented as of this encounter Results * COVID-19 Coronavirus RNA Nasopharyngeal (09/26/2021 2:12 PM CDT) COVID-19 RNA Not Detected LINDSEY HAGAN Comment: Interpretive Data Synonyms for this test include: PCR and NAAT . ??Testing performed by the [facility] Molecular Infectious Disease Laboratory. The 2019-Novel Coronavirus Assay (COVID-19) Real Time RT-PCR assay [...] on August 15, 2020. Testing performed by: [facility], [address] [place] [address]., [address] First COVID-19 test? No CERNER Comment:Testing performed by : [facility], [address] [place] [address], [address] Employeed in healthcare? No CERNER Comment:Testing performed by : [facility], [address] [place] [address], [address] Group care resident? No CERNER Comment:Testing performed by : [facility], [address] [place] [address], [address] Hospitalized? No CERNER Comment:Testing performed by : [facility], [address] [facility], [address] Is patient in ICU? No CERNER Comment:Testing performed by : [facility], [address] [place] [address], [address] Symptomatic as defined by CDC? No CERNER Comment:Testing performed by : [facility], [address] [place] [address], [address] Nasopharyngeal 09/26/2021 2: 12 PM CDT 09/26/2021 11:45 PM CDT Narrative CERNER CH - 09/27/2021 5:22 AM CDT What is the reason for testing?->Screening prior to scheduled??procedure or surgery??(Batched) Durga Ryan NP LAB MICROBIOLOGY - GENERAL CATHERINE ROLLINS Final Result LINDSEY [address] [address] Department [place] [address] documented in this encounter Visit Diagnoses Diagnosis Pre-op testing- Primary Unspecified pre-operative examination Pre-op testing Unspecified pre-operative examination documented in this encounter Care Teams Recoverer Relationship Specialty Start Date End Date No, Physician PCP - General 08/21/21 09/28/21 documented as of this encounter
--- OUTSIDE RECORDS SUMMARY | 2024-07-19 01:14 | XMS_ITS | Encounter Summary ---
Author Organization [facility] Address [address] [facility] [address] [place] [address] Care Team Providers Care Shoes Hand Sewer Name Role Phone No, Physician Primary Care Provider [phone] Danii Montejo Unavailable [phone] Reason for Visit * Reason Comments Post-op Encounter Details Date Type Department Care Team (Late st Contact Info) Description 10/17/2021 3:45 PM CDT Office Visit [facility] Orthopedics and Sports Medicine [address] [facility] [address] [place] [address] Baldo Lemus NP [address] [facility] [address] [place] [address] Orthopedic aftercare (Primary Dx); Glenoid labral tear, right, initial encounter; Anterior dislocation of right shoulder, sequela Social History Tobacco Use Types Packs/Day Years [...] on file 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 (Boys, 2-2 0 Years) documented in this encounter Progress Notes * Baldo Lemus NP - 10/17/2021 3:45 PM CDT Images from the original note were not included. Post-Op Visit Note HPI: Patient is 2 weeks s/p Right shoulder arthroscopy, with labral repair, capsulorrhaphy. Pain is wellcontrolled. Patient is currently taking nothing for pain. They report compliance with sling and HEP/activity recommendations. Vital signs: height is 188 cm (6' 2 ) and weight is 98.2 kg (216 lb 9.6 oz). His blood pressure is 121/66 and his pulse is 72. Exam: Well approximated healing post operative portal holes. No active erythema, draining, or signs of infection present. Neurovascular status is intact. Full AROM of elbow, wrist and hand. PROM: FF 80, abd 50, ER 30 Assessment: No diagnosis found. Plan: Procedure, medications and post operative expectations reviewed with patient Continue sling Will initiate outpatient PT HEP reviewed as were activity restrictions/recommendations Follow up in 4 weeks time Questions were answered. Patient expressed full understanding and agreement of plan. documented in this encounter Miscellaneous Notes * Addendum Note - Citlali Castelan MA - 10/17/2021 3:45 PM CDTAddended by: CITLALI CASTELAN on: 10/17/2021 04:16 PM Modules accepted: Orders documented in this encounter Plan of Treatment Not on file documented as of this encounter Visit Diagnoses Diagnosis Orthopedic aftercare- Primary Unspecified orthopedic aftercare Glenoid labral tear, right, initial encounter Anterior dislocation of right shoulder, sequela documented in this encounter Care Teams Shoes Hand Sewer Relationship Specialty Start Date End Date No, Physician PCP - General 09/29/21 12/31/21 Danii Montejo PA Physician Film Replacement Orderer Orthopedic Surgery 09/29/21 documented as of this encounter
--- OUTSIDE RECORDS SUMMARY | 2024-07-19 01:14 | XMS_ITS | Encounter Summary ---
Author Organization [facility] Address [address] [address] Care Team Providers Care Stoneworker Name Role Phone GustaboDaniiDebby PA Unavailable [phone] nAdrew Kirkland MD Primary Care Provider Reason for Visit * Reason Onset Date Comments L Shoulder MRA PA 06/26/2022 Encounter Details Date Type Department Care Team (Late st Contact Info) Description 06/26/2022 Telephone [facility] Orthopedic and Sports Medicine [address] [place] [phone] Claudia Adams ATC L Shoulder MRA PA Social History Tobacco Use Types Packs/Day Years [...] on file 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 He was reminded to get a disc of his MRAand drop it off at one of the offices for upload. Referral and auths faxed to the below. L MAKER FIBERGLASS * Telephone Encounter - Claudia Adams ATC - 06/26/2022 2:26 PM CST I precerted the pt's below CPT on [facility]. Details below. CPT: 41772 Auth: NPN Case #: [id number] L MAKER FIBERGLASS * Telephone Encounter - Claudia Adams ATC - 06/26/2022 2:01 PM CST I precerted the pt's below CPT on [employer]. Details below. CPT: 53575 Auth: NPN Decision ID #:[id number] L MAKER FIBERGLASS documented in this encounter Plan of Treatment Not on file documented as of this encounter Visit Diagnoses Not on filedocumented in this encounter Care Teams Stoneworker Relationship Specialty Start Date End Date Andrew Kirkland MD [address] [place] [address] PCP - General Pediatrics 01/01/22 Danii Montejo PA Physician Signal Repairer Orthopedic Surgery 09/29/21 documented as of this encounter
--- OUTSIDE RECORDS SUMMARY | 2024-07-19 01:14 | XMS_ITS | Encounter Summary ---
Author Organization [facility] Address [address] [facility] [address] [place] [address] Care Team Providers Care Turning Machine Operator Helper Name Role Phone GustaboDanii medinaDebby PA Unavailable [phone] Andrew Kirkland MD Primary Care Provider Encounter Details Date Type Department Care Team (Late st Contact Info) Description 07/20/2022 Telephone [facility] Primary Care at [address] [address] Andrew Kirkland MD [address] [place] [id number] Social History Tobacco Use Types Packs/Day Years [...] on file 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 He would like to do Physical Therapy when he returns from schoolin the summer. I will send patient a Home Exercise Program to [email or web address] for him to use while at school. SLATIVE ASSISTANT * Telephone Encounter - Roxy Ibrahim ATC - 07/24/2022 11:23 AM LEGISLATIVE ASSISTANT Per Dr. Guerrero, normal MRA patient should begin Physical Therapy. SLATIVE ASSISTANT * Telephone Encounter - Roxy Ibrahim ATC - 07/23/2022 3:38 PM CST MRA report scanned into patient chart, please review and advise POC. Patient leaves for school 07/27/22. SLATIVE ASSISTANT * Telephone Encounter - Claudia Adams ATC - 07/21/2022 10:27 AM CST I called [place] and was informed that the report was just faxed to the below fax #. Understanding with POC was met and call ended. F: [phone] SLATIVE ASSISTANT * Telephone Encounter - Claudia Adams ATC - 07/21/2022 8:16 AM CST Disc uploaded. I will call [facility] to get the report. SLATIVE ASSISTANT * Telephone Encounter - Celena Cook - 07/20/2022 2:53 PM CST Pt dropped off a MRI disc at the [place] location and is needing a apt [place] , pt is leaving for college 07-27-22 , pt is willing to go to [facility] if needed . Pt ph [phone] SLATIVE ASSISTANT documented in this encounter Plan of Treatment Not on file documented as of this encounter Visit Diagnoses Not on filedocumented in this encounter Care Teams Turning Machine Operator Helper Relationship Specialty Start Date End Date Andrew Kirkland MD [facility] [address] PCP - General Pediatrics 01/01/22 Danii Montejo PA Physician Truck Driving Orthopedic Surgery 09/29/21 documented as of this encounter
--- OUTSIDE RECORDS SUMMARY | 2024-07-19 01:14 | XMS_ITS | Referral Summary ---
Author Organization [facility] Address [address] [place] [address] Care Team Providers Care Travel Counselor [employer] Name Role Phone Danii Montejo Unavailable [phone] Andrew Kirkland MD Primary Care Provider Encounters Date Type Department Care Team Description 07/18/2024 11:25 AM MARKETING LEAD Ancillary Procedure [facility] Imaging at [address] [phone] Closed dislocation of right shoulder, initial encounter 07/18/2024 11:30 AM MARKETING LEAD Office Visit [facility] Orthopedic and Sports Medicine [address] [place] [phone] Danii Montejo PA Closed dislocation of right shoulder, initial encounter (Primary Dx) 07/13/2024 Telephone [facility] Orthopedics and Sports Medicine [address] [place] [address] [address] [place] [phone] George Bañuelos DO 07/12/2024 Ancillary Procedure [facility] Outside Films from Last 3 Months Allergies No known active allergies Medications ibuprofen (ADVIL,MOTRIN) 800 mg tablet Take 1 tablet (800 mg total) by mouth every 6 (six) hours as needed for pain Active Active Problems Problem Noted Date Diagnosed Date Glenoid labral tear, right, initial encounter Overview (09/26/2021): Added automatically from request for surgery [id number] Social History Tobacco Use Types Packs/Day Years [...] on file 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 MARKETING LEAD Gender Identity Not on file Sexual Orientation Not on file Last Filed Vital Signs Vital Sign Reading Time Taken Comments Blood Pressure 148/89 07/18/2024 11:11 AM MARKETING LEAD Pulse 68 07/18/2024 11:11 AM MARKETING LEAD Temperature 36.8 ??C (98.3 ??F) 09/29/2021 3:04 PM CD T Respiratory Rate 16 09/29/2021 4:09 PM CDT Oxygen Saturation 98% 09/29/2021 4:09 PM CDT Inhaled Oxygen Concentration - - Weight 94.8 kg (209 lb) 07/18/2024 11:11 AM MARKETING LEAD Height 188 cm (6' 2 ) 07/18/2024 11:11 AM MARKETING LEAD Body Mass Index 26.83 07/18/2024 11:11 AM MARKETING LEAD Plan of Treatment Not on file Medical Devices Implanted Type Area Grinder Operator Device Identifier Shelf Expiration Date Model / Serial / Lot [employer] Ar-7535 Fiberlink Arthrex Suturetape 1.3mm Tape Suture Nonabsorbable - [id number] Implanted:Qty: 4 on 09/29/2021 by Ankit Guerrero MD at [facility] Right: Shoulder [employer] 03/31/2026 AR-7535 / / [employer] Ar-2922bc Dunning Suture 2.4mm Pushlock Biocomposite 11.3mm 1 Fiberwire - [id number] Implanted:Qty: 1 on 09/29/2021 by Ankit Guerrero MD at [facility] Right: Shoulder [employer] 07/11/2023 AR-2922BC / / [id number] [employer] Ar-2922bc Dunning Suture 2.4mm Pushlock Biocomposite 11.3mm 1 Fiberwire - [id number] Implanted:Qty: 1 on 09/29/2021 by Ankit Guerrero MD at [facility] Right: Shoulder [employer] 07/11/2023 AR-2922BC / / [id number] [employer] Ar-2922bc Dunning Suture 2.4mm Pushlock Biocomposite 11.3mm 1 Fiberwire - [id number] Implanted:Qty: 1 on 09/29/2021 by Ankit Guerrero MD at [facility] Right: Shoulder [employer] 07/11/2023 AR-2922BC / / [id number] [employer] Ar-2922bc Dunning Suture 2.4mm Pushlock Biocomposite 11.3mm 1 Fiberwire - [id number] Implanted:Qty: 1 on 09/29/2021 by Ankit Guerrero MD at [facility] Right: Shoulder [employer] 07/11/2023 AR-2922BC / / [id number] Procedures Procedure Name Priority Date/Time Associated Diagnosis Comments XR SHOULDER RIGHT 2 OR MORE VIEWS Schedule Routine, Read Routine (OP Routine) 07/18/2024 11:30 AM MARKETING LEAD Closed dislocation of right shoulder, initial encounter XR TRANSFER OF OUTSIDE FILMS Routine 07/12/2024 12:00 AM MARKETING LEAD from Last 3 Months Results * XR Shoulder Right 2 or More Views (07/18/2024 11:30 AM MARKETING LEAD) Anatomical Region Laterality Modality Upper Extremities, Shoulder Right Digi kelvin Radiography Narrative 07/18/2024 12:34 PM MARKETING LEAD Radiographs of the right shoulder reviewed and interpreted. ??No acute fractures, dislocation, or destructive osseous lesions are noted. ??When compared with outside emergency department radiographs, there has been successful reduction of his anterior dislocation. ??Small Hill-Sachs deformity of the humeral head is appreciated. us Danii ZHAO IMG XR PROCEDURES Final Result * XR Outside Reference (07/12/2024 12:00 AM MARKETING LEAD) Narrative [facility] - 07/14/2024 8:07 AM MARKETING LEAD This order has been auto-finalized and does not contain a result. us Not In File Miscellaneous IMG XR PROCEDURES Bianca l Result [facility] from Last 3 Months Insurance [facility] CHOICE PLUS [facility] CHOICE PLUS Care Teams Travel Counselor Automobile Club Relationship Specialty Start Date End Date Andrew Kirkland MD [address] [place] [address] PCP - General Pediatrics 01/01/22 Danii Montejo PA Physician Research Physicist Orthopedic Surgery 09/29/21
--- OUTSIDE RECORDS SUMMARY | 2024-07-19 01:14 | XMS_ITS | Encounter Summary ---
Author Organization [facility] Address [address] [address] Care Team Providers Care Non Licensed Nuclear Equipment Operator Name Role Phone Danii MontejoDebby PA Unavailable Andrew Kirkland MD Primary Care Provider Reason for Referral * Diagnostic Imaging (Routine) - Closed Specialty Diagnoses / Procedures Referred By Orlando baldwin Referred To Contact Diagnoses Left shoulder pain, unspecified chronicity Procedures XR Shoulder Left 2 or More Views Ankit Guerrero MD [address] [address] [place] [address] Phone: tel: fax: [facility] Referral ID Status Reason Start Date Expiration Date Visits Re quested Visits Authorized [id number] Closed 06/26/2022 07/26/2023 1 1 TESTS CHECKER Reason for Visit * Reason Comments Follow-up Pain Encounter Details Date Type Department Care Team (Late st Contact Info) Description 06/26/2022 10:00 AM FILM TESTS CHECKER Office Visit [facility] Orthopedic and Sports Medicine [address] [place] [id number] Ankit Guerrero MD [address] [address] [place] [address] Glenoid labral tear, left, initial encounter (Primary Dx); Left shoulder pain, unspecified chronicity Social History Tobacco Use Types Packs/Day Years [...] on file 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 FILM TESTS CHECKER Gender Identity Not on file Sexual Orientation Not on file documented as of this encounter Last Filed Vital Signs Vital Sign Reading Time Taken Comments Blood Pressure 169/83 06/26/2022 10:32 AM FILM TESTS CHECKER Pulse 73 06/26/2022 10:32 AM FILM TESTS CHECKER Temperature - - Respiratory Rate - - Oxygen Saturation - - Inhaled Oxygen Concentration - - Weight 95.2 kg (209 lb 12.8 oz) 022 10:32 AM FILM TESTS CHECKER Height 188 cm (6' 2 ) 06/26/2022 10:32 AM FILM TESTS CHECKER Body Mass Index 26.94 06/26/2022 10:32 AM FILM TESTS CHECKER documented in this encounter Progress Notes * Ankit Guerrero MD - 06/26/2022 10:00 AM CST NEW PATIENT VISIT Subjective CHIEF COMPLAINT He had concerns including Follow-up of the Right Shoulder and Pain of the Left Shoulder. HISTORY OF PRESENT ILLNESS Left shoulder pain for the past week. The pain is not recently gotten worse the problem started he rolled his arm gym. His pain is achy moderate. Not plan pressure makes it better plan pressure makesit worse pain is continuous to feels like it slips out not as bad as his right shoulder but is bothered much more than his right which is by 80-90% better from his surgery March here for evaluation and treatment Pain Assessment Pain Assessment: 0-10 Pain Score: 0 - No pain Pain Location: Shoulder Pain Orientation: Right Pain Descriptors: (No pain) Pain Frequency: (No pain) Clinical Progression: Resolved Aggravating Factors: (No pain) Result of Injury: (No pain) Work-Related Injury: (No pain) Patient's Stated Pain Goal: No pain (No pain) Multiple Pain Sites: Two Pain 2 Pain Score 2: 5 - Moderate pain Pain Location 2: Shoulder Pain Orientation 2: Left Pain Descriptors 2: Dull, Discomfort, Aching Pain Frequency 2: Intermittent Pain Onset 2: Sudden Clinical Progression 2: Not changed Aggravating Factors 2: (Sleeping on it and jogging) Result of Injury 2: Yes Work-Related Injury 2: No Patient's Stated Pain Goal 2: No pain Pain Intervention(s) 2: Rest, Shower PAST MEDCIAL HISTORY He has no past medical history of Motion sickness, PONV (postoperative nausea and vomiting), or Sleep apnea. PAST SURGICAL HISTORY He has a past surgical history that includes Shoulder arthroscopy (Right, 09/29/2021). MEDICATIONS He currently has no medications in their medication list. ALLERGIES He has No Known Allergies. SOCIAL HISTORY He reports that he has never smoked. He has never used smokeless tobacco. He reports that he does not use drugs. Patient denies consuming alcoholic drinks. FAMILY HISTORY His family history is not on file. REVIEW OF SYSTEMS Review of Systems Constitutional: Negative for activity change, appetite change, chills, fever and unexpected weight change. HENT: Negative for congestion, dental problem, ear pain, hearing loss, nosebleeds, tinnitus and voice change. Eyes: Negative for pain and visual disturbance. Respiratory: Negative for apnea, cough, chest tightness and shortness of breath. Cardiovascular: Negative for chest pain, palpitations and leg swelling. Gastrointestinal: Negative for blood in stool, constipation, diarrhea, nausea and vomiting. Endocrine: Negative for cold intolerance and heat intolerance. Genitourinary: Negative for difficulty urinating, hematuria and urgency. Skin: Negative for color change, rash and wound. Allergic/Immunologic: Negative for environmental allergies. Neurological: Negative for dizziness, syncope, numbness and headaches. Hematological: Negative for adenopathy. Does not bruise/bleed easily. Psychiatric/Behavioral: Negative for confusion. The patient is not nervous/anxious and is not hyperactive. Objective PHYSICAL EXAM BP 169/83 Pulse 73 Ht 188 cm (6' 2 ) Wt 95.2 kg (209 lb 12.8 oz) BMI 26.94 kg/m?? Right shoulder The patient has normal inspection, palpation, range of motion, strength, and stability of the rightshoulder. Inspection Surgical scar/wound: present. The surgical scar/wound is healed. Left shoulder Inspection The patient has normal inspection of the left shoulder. Palpation Tenderness is present. The patient has tenderness in the anterior shoulder area(s). Range of motion The patient has normal range of motion of the left shoulder. The patient has pain with range of motion of the left shoulder. Stability The patient has abnormal stabiltiy of the left shoulder. Strength The patient has 5/5 strength throughout with exceptions as noted below. Bicep: painful and 4/5 Neurovascular The patient has normal vascular on the left side of their body. The patient has normal sensation on the left side of their body. Tests Apprehension: positive Reduction: positive Speed's: positive REVIEW OF X-RAYS/STUDIES/LABS XR Shoulder Left 2 or More Views Four views left shoulder shows no fracture subluxation or dislocation skeletally mature radiographsnormal axillary view R Shoulder XR Four views of the right shoulder are reviewed and interpreted. No acute fracture, subluxation/dislocation, or destructive osseous lesions. Joint effusion is appreciated. Patient is near skeletal maturity; remaining physes are preserved L Shoulder XR Assessment/Plan Gavin was seen today for follow-up and pain. Diagnoses and all orders for this visit: Glenoid labral tear, left, initial encounter Left shoulder pain, unspecified chronicity - XR Shoulder Left 2 or More Views - MRI Shoulder Arthrogram Left W Contrast; Future - Injection Shoulder Left Arthro Only; Future Procedures PLAN Advanced imaging indicated left shoulder. Recommend MR arthrogram left shoulder patient will followup me after the MR arthrogram to discuss treatment options. DORENE Ramirez MD TESTS CHECKER documented in this encounter Plan of Treatment Not on file documented as of this encounter Procedures Procedure Name Priority Date/Time Associated Diagnosis Comments XR SHOULDER LEFT 2 OR MORE VIEWS Schedule Routine, Read Routine (OP Routine) 06/26/2022 10:16 AM FILM TESTS CHECKER Left shoulder pain, unspecified chronicity documented in this encounter Results * XR Shoulder Left 2 or More Views (06/26/2022 10:16 AM FILM TESTS CHECKER) Anatomical Region Laterality Modality Upper Extremities, Shoulder Left Digi kelvin Radiography Narrative 06/26/2022 1:35 PM FILM TESTS CHECKER Four views left shoulder shows no fracture subluxation or dislocation skeletally mature radiographs normal axillary view us Ankit Guerrero MD IMG XR PROCEDURES Final Resu lt documented in this encounter Visit Diagnoses Diagnosis Glenoid labral tear, left, initial encounter- Primary Left shoulder pain, unspecified chronicity documented in this encounter Care Teams Non Licensed Nuclear Equipment Operator Relationship Specialty Start Date End Date Andrew Kirkland MD [address] [place] [address] PCP - General Pediatrics 01/01/22 Danii Montejo PA Physician Physician Office Specialist Orthopedic Surgery 09/29/21 documented as of this encounter
--- OUTSIDE RECORDS SUMMARY | 2024-07-19 01:14 | XMS_ITS | Encounter Summary ---
Author Organization [facility] Healthcare Address [address] [place] [address] Care Team Providers Care Drilling Machine Runner Name Role Phone No, Physician Primary Care Provider [phone] GustaboDaniiDebby PA Unavailable Encounter Details Date Type Department Care Team (Latest Contact Info) Description 09/29/2021 9:44 AM CDT - 09/29/2021 4:28 PM CDT Hospital Encounter [facility] Operating Room [address] [place] [address] Ankit Guerrero MD [address] [place] [address] [address] [place] [address] Pre-operative clearance (Primary Dx) Discharge Disposition: Discharge to home or self care Social History Tobacco Use Types Packs/Day Years [...] on file 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 Gender Identity Not on file Sexual Orientation Not on file documented as of this encounter Last Filed Vital Signs Vital Sign Reading Time Taken Comments Blood Pressure 144/89 09/29/2021 4:09 PM CDT Pulse 89 09/29/2021 4:09 PM CDT Temperature 36.8 ??C (98.3 ??F) 09/29/2021 3:04 [...] 92.51% 09/29 10:03 AM CDT Growth Chart: [facility] (Boys, 2-2 0 Years) documented in this encounter Discharge Diagnoses Diagnosis Superior glenoid labrum lesion of right shoulder, initial encounter - SUPERIOR GLENOID LABRUM LESION OF RIGHT SHOULDER, INITIAL ENCOUNTER Exposure to other specified factors, initial encounter - EXPOSURE TO OTHER SPECIFIED FACTORS, INITIAL ENCOUNTER documented in this encounter Discharge Instructions * Attachments The following attachments cannot be sent through Care Everywhere. * General Anesthesia in Pediatrics (Discharge Care) (Mosotho) * Peripheral Nerve Block (Discharge Care) (Mosotho) * Ascorbic Acid (Vitamin C) (By mouth) (Mosotho) * Cholecalciferol (By mouth) (Mosotho) * Clindamycin (By mouth) (Mosotho) * Ondansetron (By mouth, Into the mouth) (Mosotho) * Oxycodone/Acetaminophen (By mouth) (Mosotho) * Senna (By mouth) (Mosotho) documented in this encounter Medications at Time [...] here for surgical consultation with his father. Rn Neurosurgical completed by using M*Modal Fluency Direct speaking [...] included. Operative Report SURGEON: Ankit Guerrero MD Competitive Intelligence Analyst: Geraldine Tapia RN Physician Veneer Trimmer: Danii Montejo PA Scrub: Selene Smith ST [...] Implant Name Type Inv. Item Serial No. Senior Energy Analyst Lot No. LRB No. Used Action [employer] [id number] FIBERLINK ARTHREX SUTURETAPE 1.3MM TAPE SUTURE NONABSORBABLE - [id number] [employer] [id number] Fiberlink Arthrex Suturetape 1.3mm Tape Suture Nonabsorbable [employer] Inc Right 4 Implanted [employer] [id number] ANCHOR SUTURE 2.4MM PUSHLOCK BIOCOMPOSITE 11.3MM 1 FIBERWIRE - [id number] [employer] [id number] Letcher Suture 2.4MM Pushlock Biocomposite 11.3MM 1 Fiberwire [employer] Inc [id number] 1 Implanted [employer] [id number] ANCHOR SUTURE 2.4MM PUSHLOCK BIOCOMPOSITE 11.3MM 1 FIBERWIRE - [id number] [employer] [id number] Letcher Suture 2.4MM Pushlock Biocomposite 11.3MM 1 Fiberwire [employer] Inc [id number] 1 Implanted [employer] [id number] ANCHOR SUTURE 2.4MM PUSHLOCK BIOCOMPOSITE 11.3MM 1 FIBERWIRE - [id number] [employer] [id number] Letcher Suture 2.4MM Pushlock Biocomposite 11.3MM 1 Fiberwire [employer] Inc [id number] 1 Implanted [employer] [id number] ANCHOR SUTURE 2.4MM PUSHLOCK BIOCOMPOSITE 11.3MM 1 FIBERWIRE - [id number] [employer] [id number] Letcher Suture 2.4MM Pushlock Biocomposite 11.3MM 1 Fiberwire [employer] Inc [id number] 1 Implanted Estimated Blood Loss: No blood [...] operating room was stable Ankit Guerrero MD Rn Neurosurgical completed by using M*Modal Fluency Direct speaking software, therefore, transcriptionvariances may occur. Date: 09/29/2021 Time: 1:28 PM * Perioperative Nursing Note - Мария Ruth RN - 09/26/2021 1:36 PM CDT Covid screening on 09-27-21 at the [place] location. * Pre-Procedure Instructions - Мария Ruth RN - 09/26/2021 1:28 PM CDT We are pleased that you and your doctor have chosen [facility] for your surgery. We hope that the [...] on file. ?? Use no make-up, nail urdu, lotions, oils or powders on your skin. [...] encounter- Primary Pre-operative clearance Unspecified pre-operative examination documented in this encounter Admitting Diagnoses Diagnosis Glenoid labral tear, right, initial encounter documented in this encounter Administered Medications Inactive Administered Medications - up to 3 most recent administrations Medication Order MAR Action Action Date Dose Rate Site acetaminophen (TYLENOL) tablet 1,000 mg 1,000 mg, oral, Once, On Wed09/29/21 at 1030, For 1 dose, Pre-Op, Indications: Pre-Emptive AnalgesiaIndications:Pre-Empti ve Analgesia Given 09/29/2021 10:45 AM CDT 1,000 [...] dressing is not secure, reinforce and call Do NOT tape over the in-line filter. This can affect flow rate. Do NOT use cold therapy or ice around the infuser. To be started during procedure., Catheter Site: Interscalene, Catheter Side: Right, Indications: Postoperative PainIndications:Postoperative Pain New Bag 09/29/2021 2:23 PM CDT 6 mL/hr 6 mL/hr celecoxib (CeleBREX) capsule 200 mg 200 mg, oral, Once, On Wed09/29/21 at 1030, For 1 dose, Pre-Op, Indications: Pre-Emptive AnalgesiaIndications:Pre-Empti ve Analgesia Given 09/29/2021 10:45 AM CDT 200 mg clindamycin (CLEOCIN) 900 mg/50 mL in dextrose 5% (premix) 900 mg 900 mg, intravenous, Once, On Wed09/29/21 at 1030, For 1 dose, Pre-Op, Indications: Prophylaxis, SurgicalIndications:Prophylaxi s, Surgical New Bag 09/29/2021 10:45 AM CDT 900 mg Lactated Ringer's (LR) infusion 30 mL/hr, intravenous, Continuous, Starting on Wed09/29/21 at 1030, Pre-Op New Bag 09/29/2021 1:21 PM CDT Rate/Dose Verify 09/29/2021 11:41 AM CDT 30 mL/ hr New Bag 09/29/2021 10:45 AM CDT 30 mL/hr 30 mL/hr documented in this encounter Active and Recently [...] (Anesthesia Volume Adjustment - Provider: Jessica Hull CRNA)2027 (Due: Stopped) PRN Medication Order 09/27/2021 09/28/2021 [...] sterile water (premix) 2,000 mg 1 09/29/2021 EPINEPHrine 3 mg in Lactated Ringer's (LR) 3,000 mL irrigation solution 2 09/29/2021 fentaNYL (SUBLIMAZE) 50 mcg/ mL preservative free injection - ADS Override Pull 1 09/29/2021 fentaNYL (SUBLIMAZE) preserv ative free injection 50 mcg 1 09/29/2021 Lactated Ringer's (LR) irrigation 1 022 lidocaine EPINEPHrine (XYLOC DALE with EPI) 0.5 %-1:200,000 injection 1 09/29/2021 midazolam (VERSED) 2 mg/2 mL [...] 09/29 documented in this encounter Care Teams Drilling Machine Runner Relationship Specialty Start Date End Date No, Physician PCP - General 09/29/21 12/31/21 Danii Montejo PA Physician Veneer Trimmer Orthopedic Surgery 09/29/21 documented as of this encounter
--- OUTSIDE RECORDS SUMMARY | 2024-07-19 01:14 | XMS_ITS | Encounter Summary ---
Author Organization [facility] Address [address] [place] [address] Care Team Providers Care Bar Welder Name Role Phone No, Physician Primary Care Provider [phone] Encounter Details Date Type Department Care Team (Late st Contact Info) Description 08/28/2021 Telephone [facility] Orthopedics and Sports Medicine [address] [address] [place] [address] Alivia Paulino MA Social History Tobacco Use Types Packs/Day Years Used Date Smoking Tobacco: Never Smokeless Tobacco: Never Sex and Gender Information Value Date Recorded Sex Assigned at Not on file 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 She was going to further communicate with patient and father. I recommended surgical consultation with Dr. Guerrero. Mother voiced understanding and was going to discuss with patient, father and get back to us for scheduling. If she returns call, pt should be worked intoDr. Guerrero's schedule. NING DISABILITIES SPECIALIST * Telephone Encounter - Marsha Ramos MA - 09/16/2021 4:27 PM CST MRI report given to supervisor front to be scanned in. NING DISABILITIES SPECIALIST * Telephone Encounter - Marsha Ramos MA - 09/16/2021 4:19 PM CST Called [facility] and requested MRI report be faxed. Also put auth information into system for orders. NING DISABILITIES SPECIALIST * Telephone Encounter - Danii Montejo PA - 09/16/2021 12:36 PM LEARNING DISABILITIES SPECIALIST Please scan report for me to review. NING DISABILITIES SPECIALIST * Telephone Encounter - Danii Zaragoza - 09/16/2021 12:05 PM CST Dad calling today to get MRI results Dad's callback [phone] NING DISABILITIES SPECIALIST * Telephone Encounter - Danii Zaragoza - 09/16/2021 9:33 AM CST Mom called to get the results of the patients MRI. Callback # [phone] NING DISABILITIES SPECIALIST * Telephone Encounter - Cherrie Clemens ATC - 08/28/2021 11:08 AM CST Called patients mother who is on [employer]IP[employer]. Let her know that the MR Arthrogram was authorized but I had to authorize it for [facility] instead of [facility]. Patients mother stated full understanding. MR Arthrogram- Approved Auth# [id number] Valid 08/28/21-11/26/21 Injection- No Authorization Required Ref# [id number] NING DISABILITIES SPECIALIST * Telephone Encounter - Alivia Paulino MA - 08/28/2021 10:15 AM CST Father calling inquiring about MR Arthrogram. Per Cherrie, still working on this with insurance. I did advise dad, [employer] can be one of the hardest insurances to work with and get authorizations. Please contact when authorized. Thank you [phone] NING DISABILITIES SPECIALIST documented in this encounter Plan of Treatment Not on file documented as of this encounter Visit Diagnoses Not on filedocumented in this encounter Care Teams Bar Welder Relationship Specialty Start Date End Date No, Physician PCP - General 08/21/21 09/28/21 documented as of this encounter
--- OUTSIDE RECORDS SUMMARY | 2024-07-19 01:14 | XMS_ITS | Encounter Summary ---
Author Organization [facility] Address [address] [place] [address] Care Team Providers Care Dry Cleaning Checker Name Role Phone No, Physician Primary Care Provider Danii Montejo Unavailable [phone] Reason for Visit * Reason Onset Date Comments Post-op Follow-up 09/30/2021 Encounter Details Date Type Department Care Team (Late st Contact Info) Description 09/30/2021 Telephone [facility] Medical [facility] Orthopedics and Sports Medicine [address] [place] [address] Saniya Alanis RMA Post-op Follow-up Social History Tobacco Use Types Packs/Day Years [...] on file 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 Patient's father put the patient on the phone and he stated no questions or concerns at this time. Post op appt scheduled today. documented in this encounter Plan of Treatment Not on file documented as of this encounter Visit Diagnoses Not on filedocumented in this encounter Care Teams Dry Cleaning Checker Relationship Specialty Start Date End Date No, Physician PCP - General 09/29/21 12/31/21 Danii Montejo PA Physician Chemical Pumper Orthopedic Surgery 09/29/21 documented as of this encounter
--- OUTSIDE RECORDS SUMMARY | 2024-07-19 01:14 | XMS_ITS | Encounter Summary ---
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 * Telephone Encounter - Alivia Paulino MA - 10/30/2021 3:29 PM CDT Physical therapy called and need Phase 3 protocol for labral tear faxed to [phone]. Thank you documented in this encounter Plan of Treatment Not on file documented as of this encounter Visit Diagnoses Not on filedocumented in this encounter Care Teams Mail Carrier Technician Relationship Specialty Start Date End Date No, Physician PCP - General 09/29/21 12/31/21 Danii Montejo PA Physician Roller Setter Orthopedic Surgery 09/29/21 documented as of this encounter
--- OUTSIDE RECORDS SUMMARY | 2024-07-19 01:14 | XMS_ITS | Encounter Summary ---
Author Organization [facility] Healthcare Address [address] [place] [address] Care Team Providers Care Marine Diesel Technician Name Role Phone No, Physician Primary Care Provider [phone] Danii Montejo PA Unavailable [phone] Encounter Details Date Type Department Care Team (Late st Contact Info) Description 09/29/2021 11:41 AM CDT Anesthesia Event [facility] Operating Room [address] [place] [address] [place] [id number] [address] Anesthesia Record Procedure Summary Procedure Name Responsible Anesthesiologist Anesthesia Start Time Anesthesia Stop Time Right shoulder arthroscopy, with labral repair, capsulorrhaphy (Right: Shoulder) Sally Mcdaniel MD 09/29/21 1141 09/29/21 1354 Events Date Time Event Comment 09/29/2021 1028 1141 An Start 1141 An Start Data 1142 In Room 1146 An Induction The patient was reevaluated immediately before moderate or deep sedation use and before anesthesia induction. 1147 An Intubation 1148 Anesthesia Ready 1149 Patient Positioned Laterally 1150 Quick Note Pt turned to Le ft lateral decubitus postion. Head & neck maintained in neutral alignment. Dependent ear laying flat to head and eye free from position. 1152 HOB turned 90 degrees 1235 Proc Start 1235 Incision Start 1335 An Extubation 1337 Proc Fin 1347 an stop data 1348 Out of Room 1354 Handoff to RN I completed my handoff to the receiving nurse during which we: 1. Patient identified 2. Responsible provider identified 3. Pertinent medical history reviewed 4. Procedure type and surgical course discussed 5. Intraoperative anesthetic management and any significant issues discussed 6. Expectations and concerns for postop period discussed 7. Questions solicited from receiving nurse 8. Patient disposition at the time of handoff: PACU 1354 An Stop Meds Name Total midazolam 4 mg fentaNYL 75 mcg propofol 200 mg lidocaine (cardiac) syringe 2 % 80 mg succinylcholine 100 mg ondansetron 4 mg EPINEPHrine 1:200,000-bupivacaine 0.25 % 20 mL esmolol 30 mg ceFAZolin (ANCEF) 1 gram/10 mL in steril e water (premix) 2,000 mg 2,000 mg dexamethasone 10 mg/mL 10 mg ketamine 10 mg/mL - 5 mL 20 mg Lactated Ringer's (LR) infusion 1,100 mL * Agents Name O2 Air Sevoflurane Inspired Sevoflurane * Blood No blood administrations on file. Lines, Drains, and Airways Type Details Placement Removal PNB catheter Placement Date: 09/29/21; Placement Time: 1110 (created via procedure documentation); Inserted by: Sally Mcdaniel MD; Pt Tolerance: brachial plexus - interscalene; Removal Date: Injectable, Topical, None; Removal Time: Tolerated well 09/29/21 1110 by Sally Mcdaniel MD Peripheral IV Placement Date: 09/29/21; Placement Time: 1050; Catheter Size: 20 G; Orientation: Anterior, Left; Location: Wrist; Inserted by: Alda; Insertion Attempts: 1; Patient Tolerance: Tolerated well; Removal Date: 09/29/21; Removal Time: 1614 09/29/21 1050 by Alivia Rowley RN 09/29/21 1614 by Alda Meredith RN RETIRED Surgical Site 09/29/21; 1051; Right; Shoulder; 06/13/24 (Retired LDA, Removed/Completed by [facility] with LDA Utility); 1213 (Retired LDA, Removed/Completed by [employer] with LDA Utility) 09/29/21 1051 by Geraldine Tapia RN 06/13/24 1213 by Discharge Provider, Automatic ETT Placement Date: 09/29/21; Placement Time: 1147 (created via procedure documentation); Mask Ventilation: 1; Technique: Video laryngoscopy; Type: ETT - single; Single Lumen Tube Size: 7.5 mm; Cuffed: Yes; Laryngoscope: Aleksandr; Blade Size: 4; Insertion Attempts: 1; Placement Verification: Auscultation, Capnometry; Removal Date: 09/29/21; Removal Time: 1335 09/29/21 1147 by Jessica Hull CRNA 09/29/21 1335 by Jessica Hull CRNA documented in this encounter Social History Tobacco [...] on file 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 Gender Identity Not on file Sexual Orientation Not on file documented as of this encounter OR Notes * Anesthesia Postprocedure Evaluation - Sally Mcdaniel MD - 09/29/2021 3:08 PM CDT Patient: Gavin Farris Procedure Summary Date: 09/29/21 Room / Location: [address] OPERATING ROOM Anesthesia Start: 1141 Anesthesia Stop: 1354 Procedure: Right shoulder arthroscopy, with labral repair, capsulorrhaphy (Right Shoulder) Diagnosis: Glenoid labral tear, right, initial encounter (Glenoid labral tear, right, initial encounter [S43.431A]) Providers: Ankit Guerrero MD Responsible Provider: Sally Mcdaniel MD Anesthesia Type: general, regional for postop pain per surgeon request, PNB - continuous catheter ASA Status: 1 Anesthesia Type: general, regional for postop pain per surgeon request, PNB - continuous catheter Last vitals BP 141/83 Pulse 85 Temp 36.8 ??C (98.3 ??F) (Temporal) Resp 18 SpO2 99% Anesthesia Post Evaluation Patient location during evaluation: PACU Patient participation: complete - patient participated Level of consciousness: fully awake Pain management: satisfactory to patient Airway patency: adequate Cardiovascular status: acceptable Respiratory status: acceptable Hydration status: acceptable Pt is: normothermic Nausea/Vomiting status: none No complications documented. * Anesthesia Procedure Notes - Jessica Hull CRNA - 09/29/2021 12:35 PM CDT Associated Order(s): Airway Airway Patient location: OR Urgency: elective Date/time: 09/29/2021 11:47 AM Indications for airway management: anesthesia Difficult airway: no Staff: Placed by: WOOD BLOCK ARTIST: Jessica Hull CRNA Emergent airway documentation: Risks and benefits discussed: yes Consent obtained: yes Consent given by: patient Airway prep: Preoxygenated: yes Patient position: sniffing Mask difficulty assessment: 1 - vent by mask Spontaneous ventilation during airway: absent Sedation level during airway: GA Final airway details: Final airway type: endotracheal airway Tube type: ETT ETT size: 7.5 mm Cuffed: yes Technique used for successful ETT placement: video laryngoscopy Devices/Methods used in placement: stylet Blade type: Aleksandr Video blade type: Encover Blade size: 4 Cormack-Lehane (video): grade I - full view of glottis Cuff inflated with: air ETT to lips: 23 cm Placement verified by: auscultation and CO2 detection Airway secured with: other Number of attempts: 1 * Anesthesia Procedure Notes - Sally Mcdaniel MD - 09/29/2021 11:29 AM CDTAssociated Order(s): Peripheral Block Peripheral Block Patient location during procedure: block room Start time: 09/29/2021 11:10 AM End time: 09/29/2021 11:25 AM Reason for block: post-op pain management per surgeon request Ultrasound image in chart or stored: yes Block type: catheter continuous infusion Laterality: right Block type: brachial plexus - interscalene Staff: Placed by: Anesthesiologist: Sally Mcdaniel MD Procedure prep: Preprocedure checklist: patient identified, procedure contraindications assessed, site marked, procedure consent, surgical consent, IV checked, risks, benefits and alternatives discussed, monitors and equipment checked and timeout performed Patient position: supine and head of bed elevated Procedure performed while patient: sedate with meaningful contact Monitoring: ECG, oximetry, blood pressure and capnography Supplemental O2: nasal cannula Prep solution: chlorhexidine/alcohol PPE: provider hat/mask, sterile probe cover and gel, sterile drape and sterile gloves Skin infiltrated with lidocaine 1%: yes Peripheral nerve block: Technique: ultrasound guided Needle type: insulated and short-bevel Needle gauge: 18 G Needle length: 100 mm Injection assessment: injection made incrementally with constant monitoring, local visualized surrounding nerve on ultrasound, negative aspiration for heme, no paresthesias noted and normal resistance to injection Assessment: Block success: full evaluation pending Events: patient tolerated procedure well with no complications * Anesthesia Preprocedure Evaluation - Sally Mcdaniel MD - 09/29/2021 10:23 AM CDT Anesthesia Evaluation Gavin Farris is a 16 y.o. male Procedure(s): Right shoulder arthroscopy, surgical; capsulorrhaphy arthroscopy equipment, LATERAL position, NMES,Spider, polar care, Labral tape x 8 and Arthrex passers available Pre-Op Diagnosis Codes: * Glenoid labral tear, right, initial encounter [S43.431A] HISTORY Past Medical History Information obtained from: patient and chart. Neurological Neuro/Psych system: negative Cardiovascular Cardiac system: negative Respiratory Respiratory system: negative Hepatic / Heme Hepatic/Heme system: negative Gastrointestinal GI system: negative Renal / Renal/ system: negative Endocrine / Other Endocrine/Other system: negative Patient Active Problem List Diagnosis ??? Glenoid labral tear, right, initial encounter History reviewed. No pertinent past medical history. History reviewed. No pertinent surgical history. No Known Allergies Med List Status: Nurse Complete Set By: Мария Ruth RN at 09/26/2021 1:27 PM No medications reported. Current Facility-Administered Medications: ??? acetaminophen (TYLENOL) tablet 1,000 mg, 1,000 mg, oral, Once ??? benzoyl peroxide 5 % external liquid, , topical, Once ??? ceFAZolin (ANCEF) 1 gram/10 mL in sterile water (premix) 2,000 mg, 2,000 mg, intravenous, Once ??? celecoxib (CeleBREX) capsule 200 mg, 200 mg, oral, Once ??? clindamycin (CLEOCIN) 900 mg/50 mL in dextrose 5% (premix) 900 mg, 900 mg, intravenous, Once ??? EPINEPHrine 3 mg in Lactated Ringer's (LR) 3,000 mL irrigation solution, , irrigation, Once ??? EPINEPHrine 3 mg in Lactated Ringer's (LR) 3,000 mL irrigation solution, , irrigation, Once ??? Lactated Ringer's (LR) infusion, 30 mL/hr, intravenous, Continuous ??? sodium chloride 0.9% flush 0.5-20 mL, 0.5-20 mL, intra-catheter, PRN Social History Tobacco Use Smoking Status Never Smoker Smokeless Tobacco Never Used Substance and Sexual Activity Alcohol Use Not on file Substance and Sexual Activity Drug Use Never History reviewed. No pertinent family history. Vitals: 09/29/21 1003 Pulse: 72 Resp: 20 Temp: 36.1 ??C (97 ??F) SpO2: 100% PT: No results found for requested labs within last 720 hours. INR: No results found for requested labs within last 720 hours. APTT: No results found for requested labs within last 720 hours. Hgb A1C: No results found for requested labs within last 720 hours. CBC RBC: No results found for requested labs within last 720 hours. RDW: No results found for requested labs within last 720 hours. MCHC: No results found for requested labs within last 720 hours. MCH: No results found for requested labs within last 720 hours. MCV: No results found for requested labs within last 720 hours. Hct: No results found for requested labs within last 720 hours. Hgb: No results found for requested labs within last 720 hours. WBC: No results found for requested labs within last 720 hours. MPV: No results found for requested labs within last 720 hours. Platelets: No results found for requested labs within last 720 hours. RDW CV: No results found for requested labs within last 720 hours. RDW Sd: No results found for requested labs within last 720 hours. BMP Glucose: No results found for requested labs within last 720 hours. Calcium: No results found for requested labs within last 720 hours. Sodium: No results found for requested labs within last 720 hours. Potassium: No results found for requested labs within last 720 hours. CO2: No results found for requested labs within last 720 hours. Chloride: No results found for requested labs within last 720 hours. BUN: No results found for requested labs within last 720 hours. Creatinine: No results found for requested labs within last 720 hours. STOP-Bang Total Score: 1 DOS Physical Exam Medical history, medications, and allergies reviewed. Attestation: This PAT evaluation 09/29/2021. Airway Exam: Mallampati: II Cervical ROM: FROM TM distance: >4 Cardiovascular Exam: Rate: regular Rhythm: regular Pulmonary Exam: LCTA, bilat Dental Exam: Appears intact Current state: Patient's current state is cooperative. Anesthesia Plan ASA 1 My patient is approved for the Anesthesia Controlled Medication protocol when under care of a WOOD BLOCK ARTIST Planned anesthesia: General, regional for postop pain per surgeon request and PNB - continuous catheter Team communication plan: oral ET tube Upper extremity: brachial plexus - interscalene Induction: Induction: intravenous. Postoperative Plan: Postoperative administration opioids intended. No postoperative mechanical ventilation intended. Informed Consent: Discussed plan with attending. Anesthesia plan and risks discussed with patient. Consent and Attending signature: I and/or my designee have discussed the anesthesia plan, benefits, possible alternatives, parental presence at time of induction (if indicated), and clinically relevant risks that may include dental injury, unintentional awareness, and/or other complications. The patient and/or parent/legal guardian understand, and agree to proceed. All questions answered. documented in this encounter Miscellaneous Notes * Addendum Note - Jessica Hull CRNA - 10/03/2021 9:20 AM CDT Addendum created 10/03/21919 by Jessica Hull CRNA Intraprocedure Meds edited, Orders acknowledged in Narrator documented in this encounter Plan of Treatment Not on file documented as of this encounter Procedures Procedure Name Priority Date/Time Associated Diagnosis Comments MO AN ELECTIVE ENDOTRACHEAL AIRWAY Routine 09/29/2021 11:47 AM CDT ANESTHESIA PERIPHERAL BLOCK Routine 09/29/2021 11:10 AM CDT documented in this encounter Results * MO AN ELECTIVE ENDOTRACHEAL AIRWAY (09/29/2021 11:47 AM CDT) Narrative Jessica Hull CRNA - 09/29/2021 11:47 AM CDT Jessica Hull CRNA ? 09/29/2021 12:37 PM Airway Patient location: OR Urgency: elective Date/time: 09/29/2021 11:47 AM Indications for airway management: anesthesia Difficult airway: no Staff: Placed by: WOOD BLOCK ARTIST: Jessica Hull CRNA Emergent airway documentation: Risks and benefits discussed: yes Consent obtained: yes Consent given by: patient Airway prep: Preoxygenated: yes Patient position: sniffing Mask difficulty assessment: 1 - vent by mask Spontaneous ventilation during airway: absent Sedation level during airway: GA Final airway details: Final airway type: endotracheal airway Tube type: ETT ETT size: 7.5 mm Cuffed: yes Technique used for successful ETT placement: video laryngoscopy Devices/Methods used in placement: stylet Blade type: Aleksandr Video blade type: Olmos Blade size: 4 Cormack-Lehane (video): grade I - full view of glottis Cuff inflated with: air ETT to lips: 23 cm Placement verified by: auscultation and CO2 detection Airway secured with: other Number of attempts: 1 us Sally Mcdaniel MD ANESTHESIA ORDERABLES Fi nal Result * BW IP ANE LDA PERIPHERAL NERVE CATHETER (09/29/2021 11:10 AM CDT) Narrative Sally Mcdaniel MD - 09/29/2021 11:10 AM CDT Sally Mcdaniel MD ? 09/29/2021 11:30 AM Peripheral Block Patient location during procedure: block room Start time: 09/29/2021 11:10 AM End time: 09/29/2021 11:25 AM Reason for block: post-op pain management per surgeon request Ultrasound image in chart or stored: yes Block type: catheter continuous infusion Laterality: right Block type: brachial plexus - interscalene Staff: Placed by: Anesthesiologist: Sally Mcdaniel MD Procedure prep: Preprocedure checklist: patient identified, procedure contraindications assessed, site marked, procedure consent, surgical consent, IV checked, risks, benefits and alternatives discussed, monitors and equipment checked and timeout performed Patient position: supine and head of bed elevated Procedure performed while patient: sedate with meaningful contact Monitoring: ECG, oximetry, blood pressure and capnography Supplemental O2: nasal cannula Prep solution: chlorhexidine/alcohol PPE: provider hat/mask, sterile probe cover and gel, sterile drape and sterile gloves Skin infiltrated with lidocaine 1%: yes Peripheral nerve block: Technique: ultrasound guided Needle type: insulated and short-bevel Needle gauge: 18 G Needle length: 100 mm Injection assessment: injection made incrementally with constant monitoring, local visualized surrounding nerve on ultrasound, negative aspiration for heme, no paresthesias noted and normal resistance to injection Assessment: Block success: full evaluation pending Events: patient tolerated procedure well with no complications us Sally Mcdaniel MD ANESTHESIA ORDERABLES Fi nal Result documented in this encounter Visit Diagnoses Not on filedocumented in this encounter Administered Medications Inactive Administered Medications - up to 3 most recent administrations Medication Order MAR Action Action Date Dose Rate Site bupivacaine-EPINEPHrine (MARCAINE with EPI) 0.25 %-1:200,000 preservative free injection other, As needed, Starting on Wed09/29/21 at 1116, Anesthesia Intra-op Given 09/29/2021 11:16 AM CDT 20 mL ceFAZolin (ANCEF) 1 gram/10 mL in sterile water (premix) 2,000 mg 2,000 mg, intravenous, at 400 mL/hr, Administer over 3 Minutes, Once, On Wed09/29/21 at 1030, For 1 dose, Pre-Op, Administer within 60 minutes of incision., Indications: Prophylaxis, SurgicalIndications:Prophylaxis , Surgical Given 09/29/2021 12:34 PM CDT 2,000 mg dexAMETHasone (DECADRON) injection solution intravenous, Administer over 2 Minutes, As needed, Starting on Wed09/29/21 at 1235, Anesthesia Intra-op Given 09/29/2021 12:35 PM CDT 10 mg esmoloL (BREVIBLOC) injection intravenous, Administer over 1 Minutes, As needed, Starting on Wed09/29/21 at 1146, Anesthesia Intra-op Given 09/29/2021 11:46 AM CDT 30 mg fentaNYL (SUBLIMAZE) preservative free injection intravenous, As needed, Starting on Wed09/29/21 at 1116, Anesthesia Intra-op Given 09/29/2021 12:40 PM CDT 25 mcg Given 09/29/2021 11:16 AM CDT 50 mcg ketamine (KETALAR) 50 mg/5 mL (10 mg/mL) in sodium chloride 0.9% (premix) intravenous, As needed, Starting on Wed09/29/21 at 1146, Anesthesia Intra-op Given 09/29/2021 11:46 AM CDT 20 mg Lactated Ringer's (LR) infusion 30 mL/hr, intravenous, Continuous, Starting on Wed09/29/21 at 1030, Pre-Op New Bag 09/29/2021 1:21 PM CDT Rate/Dose Verify 09/29/2021 11:41 AM CDT 30 mL/ hr New Bag 09/29/2021 10:45 AM CDT 30 mL/hr 30 mL/hr lidocaine (XYLOCAINE) 20 mg/mL (2 %) preservative free injection intravenous, As needed, Starting on Wed09/29/21 at 1146, Anesthesia Intra-op Given 09/29/2021 11:46 AM CDT 80 mg midazolam (VERSED) 1 mg/mL preservative free injection intravenous, Administer over 2 Minutes, As needed, Starting on Wed09/29/21 at 1116, Anesthesia Intra-op Given 09/29/2021 11:41 AM CDT 2 mg Given 09/29/2021 11:16 AM CDT 2 mg ondansetron (ZOFRAN) injection intravenous, Administer over 2 Minutes, As needed, Starting on Wed09/29/21 at 1235, Anesthesia Intra-op Given 09/29/2021 12:35 PM CDT 4 mg propofoL (DIPRIVAN) 10 mg/mL IV intravenous, As needed, Starting on Wed09/29/21 at 1146, Anesthesia Intra-op Given 09/29/2021 11:46 AM CDT 200 mg succinylcholine (ANECTINE) injection intravenous, As needed, Starting on Wed09/29/21 at 1146, Anesthesia Intra-op Given 09/29/2021 11:46 AM CDT 100 mg documented in this encounter Care Teams Marine Diesel Technician Relationship Specialty Start Date End Date No, Physician PCP - General 09/29/21 12/31/21 Danii Montejo PA Physician Security Clerk Orthopedic Surgery 09/29/21 documented as of this encounter
--- OUTSIDE RECORDS SUMMARY | 2024-07-19 01:14 | XMS_ITS | Encounter Summary ---
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 Thrasher. Patient is experiencing left shoulder pain now. Can you see him for left shoulder same day/06/26/22. Please advise. Thank you ORT SKILLED MAINTENANCE SUPERVISOR documented in this encounter Plan of Treatment Not on file documented as of this encounter Visit Diagnoses Not on filedocumented in this encounter Care Teams Food Cart Attendant Relationship Specialty Start Date End Date Andrew Kirkland MD [address] [place] [address] PCP - General Pediatrics 01/01/22 Danii Montejo PA Physician Drop Shipment Clerk Orthopedic Surgery 09/29/21 documented as of this encounter
--- OUTSIDE RECORDS SUMMARY | 2024-07-19 01:14 | XMS_ITS | Encounter Summary ---
Author Organization [facility] Medical Group Address [address] [address] Care Team Providers Care Traveling Freight Agent Name Role Phone GustaboDanii medinaDebby PA Unavailable [phone] Andrew Kirkland MD Primary Care Provider Reason for Visit * Reason Onset Date Comments Shoulder HEP 07/24/2022 Encounter Details Date Type Department Care Team (Late st Contact Info) Description 07/24/[address] 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 Goal is to complete exercises 3-4 times per week. Call office with any questions. SCAPULAR PROTRACTION - FREE WEIGHT - SERRATUS PUNCHES - Repeat 15 Times, Complete 2 Sets, Perform 4Times a Week Theraband Internal Rotation - Repeat 10 Times, Hold 1 Second(s), Complete 3 Sets, Perform 4 Times aWeek Theraband External Rotation - Repeat 10 Times, Hold 1 Second(s), Complete 3 Sets, Perform 4 Times aWeek FREE WEIGHT FLEXION IN NEUTRAL ROTATION - Repeat 15 Times, Hold 1 Second(s), Complete 2 Sets, Perform 4 Times a Week FREE WEIGHT SCAPTION - Repeat 15 Times, Hold 1 Second(s), Complete 2 Sets, Perform 4 Times a Week ELASTIC BAND BILATERAL HORIZONTAL ABDUCTION - Repeat 10 Times, Hold 1 Second(s), Complete 3 Sets, Perform 4 Times a Week EXERCISE BALL - PRONE T - THUMBS UP - Repeat 10 Times, Complete 3 Sets, Perform 4 Times a Week EXERCISE BALL - PRONE EXTENSION - Repeat 10 Times, Complete 3 Sets, Perform 4 Times a Week Wall walks - lateral - Repeat 2 Times, Complete 1 Set, Perform 4 Times a Week W I T Y standing with band - Repeat 10 Times, Hold 3 Seconds, Complete 3 Sets, Perform 4 Times a Week ELASTIC BAND ROWS - Repeat 10 Times, Hold 1 Second(s), Complete 3 Sets, Perform 4 Times a Week CAL CUSTOMER SERVICE REPRESENTATIVE documented in this encounter Plan of Treatment Not on file documented as of this encounter Visit Diagnoses Not on filedocumented in this encounter Care Teams Traveling Freight Agent Relationship Specialty Start Date End Date Andrew Kirkland MD Pending sale to [facility] [place] [address] PCP - General Pediatrics 01/01/22 Danii Montejo PA Physician Manager Applied Orthopedic Surgery 09/29/21 documented as of this encounter
--- OUTSIDE RECORDS SUMMARY | 2024-07-19 01:14 | XMS_ITS | Encounter Summary ---
Author Organization [facility] Address [address] [address] Care Team Providers Care Android Programmer Name Role Phone Danii Montejo Unavailable [phone] Andrew Kirkland MD Primary Care Provider Reason for Visit * Reason Comments Post-op Encounter Details Date Type Department Care Team (Late st Contact Info) Description 01/01/2022 1:30 PM CDT Office Visit [facility] Orthopedic and Sports Medicine [facility] [place] [phone] Danii Montejo PA [address] [place] [address] [address] Anterior dislocation of right shoulder, sequela (Primary Dx); Status post labral repair of shoulder Social [...] on file 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 Gender Identity Not on file Sexual Orientation Not on file documented as of this encounter Last Filed Vital Signs Vital Sign Reading Time Taken Comments Blood Pressure 108/66 01/01/2022 1:36 PM CDT Pulse 79 01/01/2022 1:36 PM CDT Temperature - - Respiratory Rate - - Oxygen Saturation - - Inhaled Oxygen Concentration - - Weight 98.9 kg (218 lb) 01/01/2022 1:36 PM CDT Height 188 cm (6' 2 ) 01/01/2022 1:36 PM CDT Body Mass Index 27.99 01/01/2022 1:36 PM CDT Body Mass Index Percentile 91.78% 01/01/2022 1:3 6 PM CDT Growth Chart: [facility] (Boys, 2-2 0 Years) documented in this encounter Progress Notes * Gustabo Debby, CECE - 01/01/2022 1:30 PM CDT Images from the original note were not included. FOLLOW UP VISIT Subjective CHIEF COMPLAINT He had concerns including Post-op of the Right Shoulder. HISTORY OF PRESENT ILLNESS 3 mos s/p right shoulder arthroscopy with anterior labral repair He is is doing PT at [facility] in [place] and progressing well through his protocol. Reports he has some mild stiffness, but denies any significant pain. Overall he is happy with his progress. Pain Assessment Pain Assessment: No/denies pain MEDICATIONS He currently has no medications in their medication list. REVIEW OF SYSTEMS Review of Systems Constitutional: Negative for chills, fatigue and fever. Respiratory: Negative for cough, chest tightness and shortness of breath. Cardiovascular: Negative for chest pain. Gastrointestinal: Negative for nausea and vomiting. Musculoskeletal: Negative for arthralgias, gait problem, joint swelling and myalgias. Skin: Negative for rash and wound. Neurological: Negative for headaches. Objective PHYSICAL EXAM BP 108/66 Pulse 79 Ht 188 cm (6' 2 ) Wt 98.9 kg (218 lb) BMI 27.99 kg/m?? Right shoulder Inspection Atrophy: present Surgical scar/wound: present. The surgical scar/wound is healed and no evidence of infection. Palpation Tenderness is absent. Range of motion The patient has reduced range of motion of the right shoulder. The patient does not have pain with range of motion of the right shoulder. Stability Th patient has normal stability of the right shoulder. Strength Shoulder abduction: 5- Inernal rotation: 5- External rotation: 5- Supraspinatus: 4+ Neurovascular The patient has normal vascular on the right side of his body. He has normal sensation on the right side of his body. REVIEW OF X-RAYS/STUDIES/LABS Assessment/Plan Gavin was seen today for post-op. Diagnoses and all orders for this visit: Anterior dislocation of right shoulder, sequela - Ambulatory referral order to Physical Therapy -; Future Status post labral repair of shoulder - Ambulatory referral order to Physical Therapy -; Future PLAN Discussed reviewed ongoing expectations with patient. Continue outpatient PT and advancement of protocol. Will see him back in early Feb prior to departure for College in [place] He understands organized sports/intermurals will not be recommended until at least 6 mos post op. All questions were answered. Patient expressed full understanding and agreement of plan. Jigger Operator completed by using BackOps*SuppreMol Fluency Direct speaking software, therefore, transcriptionvariances may occur. CECE Phipps documented in this encounter Plan of Treatment Not on file documented as of this encounter Visit Diagnoses Diagnosis Anterior dislocation of right shoulder, sequela- Primary Status post labral repair of shoulder documented in this encounter Discontinued Medications Medication Sig Discontinue Reason Start Date End Da te cholecalciferol (VITAMIN D-3) 2000 unit capsule Take 1 capsule (2,000 Units total) by mouth daily Therapy completed 09/29/2021 01/01/2022 ascorbic acid (VITAMIN C) 500 mg tablet,chewable Take 1 tablet/chew tab (500 mg total) by mouth 2 (two) times a day Therapy completed 09/29/2021 01/01/2022 documented as of this encounter Care Teams Android Programmer Relationship Specialty Start Date End Date Andrew Kirkland MD [address] [place] [address] PCP - General Pediatrics 01/01/22 Danii Montejo PA Physician Adoption Specialist Orthopedic Surgery 09/29/21 documented as of this encounter
--- OUTSIDE RECORDS SUMMARY | 2024-07-19 01:14 | XMS_ITS | Encounter Summary ---
Author Organization [facility] Address [address] [address] Care Team Providers Care Performing Arts Technicians Name Role Phone No, Physician Primary Care Provider [phone] Reason for Visit * Diagnostic Imaging (Routine) - Closed Specialty Diagnoses / Procedures Referred By Orlando baldwin Referred To Contact Diagnoses Pain Procedures XR Shoulder Right 2 or More Views Danii Montejo PA Phone: tel: fax: [facility] Referral ID Status Reason Start Date Expiration Date Visits Re quested Visits Authorized [id number] Closed 08/21/2021 09/20/2022 1 1 Encounter Details Date Type Department Care Team (Late st Contact Info) Description 08/21/2021 1:55 PM INTELLIGENCE AGENT Ancillary Procedure [facility] Imaging at [address] [address] Social History Tobacco Use Types Packs/Day Years Used Date Smoking Tobacco: Never Smokeless Tobacco: Never Sex and Gender Information Value Date Recorded Sex Assigned at Not on file 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 INTELLIGENCE AGENT Gender Identity Not on file Sexual Orientation Not on file documented as of this encounter Plan of Treatment Not on file documented as of this encounter Procedures Procedure Name Priority Date/Time Associated Diagnosis Comments XR SHOULDER RIGHT 2 OR MORE VIEWS Schedule Routine, Read Routine (OP Routine) 08/21/2021 1:58 PM INTELLIGENCE AGENT Anterior dislocation of right shoulder, sequela documented in this encounter Results * XR Shoulder Right 2 or More Views (08/21/2021 1:58 PM INTELLIGENCE AGENT) Anatomical Region Laterality Modality Upper Extremities, Shoulder Right Digi kelvin Radiography Narrative 08/21/2021 2:54 PM INTELLIGENCE AGENT Four views of the right shoulder are reviewed and interpreted. ??No acute fracture, subluxation/dislocation, or destructive osseous lesions. ??Joint effusion is appreciated. ??Patient is near skeletal maturity; remaining physes are preserved us Danii ZHAO IMG XR PROCEDURES Edite d Result - Final documented in this encounter Visit Diagnoses Not on filedocumented in this encounter Care Teams Performing Arts Technicians Relationship Specialty Start Date End Date No, Physician PCP - General 08/21/21 09/28/21 documented as of this encounter
--- OUTSIDE RECORDS SUMMARY | 2024-07-19 01:14 | XMS_ITS | Encounter Summary ---
Author Organization [facility] Address [address] [facility] [address] [place] [address] Care Team Providers Care Supervisor Display Fabrication Name Role Phone No, Physician Primary Care Provider [phone] No, Physician Primary Care Provider [phone] Danii Montejo Unavailable [phone] Encounter Details Date Type Department Care Team (Late st Contact Info) Description 09/26/2021 Orders Only [facility] Medical [facility] Orthopedics and Sports Medicine [address] [facility] [address] [place] [address] Ankit Guerrero MD [address] [facility] [address] [place] [address] Glenoid labral tear, right, initial encounter (Primary [...] on file 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 Gender Identity Not on file Sexual Orientation Not on file documented as of this encounter Plan of Treatment Not on file documented as of this encounter Visit Diagnoses Diagnosis Glenoid labral tear, right, initial encounter- Primary documented in this encounter Orders General Supply Count Last Ordered Date First Or dered Date NEUROMUSCULAR ELECTRICAL STI MULATION (NMES) 1 09/26/2021 documented in this encounter Care Teams Supervisor Display Fabrication Relationship Specialty Start Date End Date No, Physician PCP - General 08/21/21 09/28/21 No, Physician PCP - General 09/29/21 12/31/21 Danii Montejo PA Physician Turn Supervisor Orthopedic Surgery 09/29/21 documented as of this encounter
--- OUTSIDE RECORDS SUMMARY | 2024-07-19 01:15 | XMS_ITS | Encounter Summary ---
Author Organization [facility] Address [address] [facility] [address] [place] [address] Care Team Providers Care Dance Studio Manager Name Role Phone Unavailable Primary Care Provider Unavailabl e Encounter Details Date Type Department Care Team (Late st Contact Info) Description 08/19/2021 Telephone [facility] Orthopedics and Sports Medicine [address] [facility] [address] [place] [address] Ankit Guerrero MD 4 [facility] [address] [place] [address] Social History Tobacco Use Types Packs/Day Years Used Date Smoking Tobacco: Never Assessed Sex and Gender Information Value Date Recorded Sex Assigned at Not on file 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 DISASTER RECOVERY ANALYST Gender Identity Not on file Sexual Orientation Not on file documented as of this encounter Miscellaneous Notes * Telephone Encounter - Victor M Cano PA - 08/19/2021 7:50 PM DISASTER RECOVERY ANALYST Please add to Danii Santo STER RECOVERY ANALYST * Telephone Encounter - Danii Zaragoza - 08/19/2021 3:38 PM CST Patient was playing Hockey last night and dislocated RT shoulder,,, no xrays have been done. Parents had a sling. Patient has been taking ibuprofen every 4 hours. Mom was told the shoulder was actually dis-locatedand a Nurse Practioner was there and popped the shoulder back in (per mom) Patient was advised to follow up with Ortho. Please call mom @ [phone] to schedule appt. PATIENT WILL NEED TO GET A HIPPA ON FILE. STER RECOVERY ANALYST documented in this encounter Plan of Treatment Not on file documented as of this encounter Visit Diagnoses Not on filedocumented in this encounter
--- OUTSIDE RECORDS SUMMARY | 2024-07-19 01:15 | XMS_ITS | Encounter Summary ---
Author Organization [facility] Address [address] [address] Care Team Providers Care Cleaning And Washing Equipment Operator Name Role Phone No, Physician Primary Care Provider [phone] Reason for Referral * Diagnostic Imaging (Routine) - Closed Specialty Diagnoses / Procedures Referred By Orlando baldwin Referred To Contact Diagnoses Pain Procedures XR Shoulder Right 2 or More Views Danii Montejo PA Phone: tel: fax: [facility] Referral ID Status Reason Start Date Expiration Date Visits Re quested Visits Authorized [id number] Closed 08/21/2021 09/20/2022 1 1 ONAL SALES EXECUTIVE Reason for Visit * Reason Comments Pain Encounter Details Date Type Department Care Team (Late st Contact Info) Description 08/21/2021 2:00 PM NATIONAL SALES EXECUTIVE Office Visit [facility] Orthopedic and Sports Medicine [address] [place] [phone] Danii Montejo PA [address] [place] [address] [address] [place] [address] Anterior dislocation of right shoulder, sequela (Primary Dx); Glenoid labral tear, right, initial encounter Social History Tobacco Use Types Packs/Day Years Used Date Smoking Tobacco: Never Smokeless Tobacco: Never Sex and Gender Information Value Date Recorded Sex Assigned at Not on file 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 NATIONAL SALES EXECUTIVE Gender Identity Not on file Sexual Orientation Not on file documented as of this encounter Last Filed Vital Signs Vital Sign Reading Time Taken Comments Blood Pressure 125/82 08/21/2021 2:04 PM NATIONAL SALES EXECUTIVE Pulse 66 08/21/2021 2:04 PM NATIONAL SALES EXECUTIVE Temperature - - Respiratory Rate - - Oxygen Saturation - - Inhaled Oxygen Concentration - - Weight 99.8 kg (220 lb) 08/21/2021 2:04 PM NATIONAL SALES EXECUTIVE Height 188 cm (6' 2 ) 08/21/2021 2:04 PM NATIONAL SALES EXECUTIVE Body Mass Index 28.25 08/21/2021 2:04 PM NATIONAL SALES EXECUTIVE Body Mass Index Percentile 93.10% 08/21/2021 2:0 4 PM NATIONAL SALES EXECUTIVE Growth Chart: [facility] (Boys, 2-2 0 Years) documented in this encounter Progress Notes * Danii Montejo PA - 08/21/2021 2:00 PM CST Images from the original note were not included. NEW PATIENT VISIT Subjective CHIEF COMPLAINT He had concerns including Pain of the Right Shoulder. HISTORY OF PRESENT ILLINESS Patient here with complaints of acute right shoulder pain. Two nights ago he suffered an acute dislocation while playing hockey. He reports his arm was above his head while he was hit from behind. Hestates a nurse who was present was able to help him reduce it by applying gentle traction. He reports initial tingling/numbness throughout his right hand following the reduction, however this has since resolved. Six he has been wearing a sling which he obtained [id number] at a pharmacy. Patient is currently a senior in high school. He denies any prior injury to the right shoulder and has nohistory of previous dislocation or shoulder instability. Pain Assessment Pain Assessment: 0-10 Pain Score: 3 Pain Location: Shoulder Pain Orientation: Right PAST MEDICAL HISTORY He has no past medical history on file. PAST SURGICAL HISTORY He has no past surgical history on file. MEDICATIONS He currently has no medications in their medication list. ALLERGIES He has No Known Allergies. SOCIAL HISTORY He reports that he has never smoked. He has never used smokeless tobacco. FAMILY HISTORY History reviewed. No pertinent family history. REVIEW OF SYSTEMS Review of Systems Constitutional: Negative for chills, fatigue and fever. Eyes: Negative for pain and visual disturbance. Respiratory: Negative for chest tightness and shortness of breath. Cardiovascular: Negative for chest pain and leg swelling. Gastrointestinal: Negative for abdominal pain, constipation, diarrhea and vomiting. Genitourinary: Negative for dysuria, frequency and urgency. Musculoskeletal: Negative for myalgias. Skin: Negative for rash and wound. Neurological: Negative for dizziness, weakness and light-headedness. Hematological: Does not bruise/bleed easily. Psychiatric/Behavioral: Negative for confusion and hallucinations. Objective PHYSICAL EXAM BP 125/82 Pulse 66 Ht 188 cm (6' 2 ) Wt 99.8 kg (220 lb) BMI 28.25 kg/m?? Right shoulder Inspection Erythema: absent Edema: present Effusion: 2+ Swelling: moderate Atrophy: absent Surgical scar/wound: absent. Posture, chin [...] the right shoulder. Passive abduction: 90 degrees. Neurovascular The patient has normal vascular on the right side of his body. He has normal sensation on the right side of his body. Tests Apprehension: positive Comments: Further Strength and special testing deferred due to acute dislocation. Left shoulder The patient has normal inspection, palpation, range of motion, strength, and stability of the left shoulder. REVIEW OF X-RAYS/STUDIES/LABS XR Shoulder Right 2 or More Views Four views of the right shoulder are reviewed and interpreted. No acute fracture, subluxation/dislocation, or destructive osseous lesions. Joint effusion is appreciated. Patient is near skeletal maturity; remaining physes are preserved Assessment/Plan Gavin was seen today for pain. Diagnoses and all orders for this visit: Anterior dislocation of right shoulder, sequela - XR Shoulder Right 2 or More Views Glenoid labral tear, right, initial encounter Plan Reviewed radiographic findings with patient. Recommendations MR arthrogram to further evaluate his glenoid labrum. I further recommended use of a sling shot neutral sling, however patient declined citing he would be unable to complete school activities in this sling. I further reviewed benefits of utilizing the sling over the basic sling he obtained [id number], however he again declined. I advise no further sports, which he voiced understanding of. Patient was also agreeable for me to contact his mother today. I discussed his case with his motherin a call, and advised her of our further recommendations. She was in agreement with plan Regarding sling recommendations, she is going to further check her DME insurance and discuss with her son. We will obtain arthrogram MARGARET and pt will follow up with Dr. Guerrero. TAVIA and OTC meds prn. All questions were answered. Patient expressed full understanding and agreement of plan. District Administrative Assistant completed by using SimplyCast Direct speaking software, therefore, transcriptionvariances may occur. CECE Phipps Cosigned by Ankit Guerrero MD at 08/22/2021 9:56 AM NATIONAL SALES EXECUTIVE ONAL SALES EXECUTIVE ONAL SALES EXECUTIVE documented in this encounter Miscellaneous Notes * Addendum Note - Cherrie Clemens ATC - 08/21/2021 2:00 PM CSTAddended by: CHERRIE CLEMENS on: 08/27/2021 12:05 PM Modules accepted: Orders ONAL SALES EXECUTIVE * Addendum Note - Cherrie Clemens ATC - 08/21/2021 2:00 PM CSTAddended by: CHERRIE CLEMENS on: 08/28/2021 10:59 AM Modules accepted: Orders ONAL SALES EXECUTIVE documented in this encounter Plan of Treatment Not on file documented as of this encounter Procedures Procedure Name Priority Date/Time Associated Diagnosis Comments XR SHOULDER RIGHT 2 OR MORE VIEWS Schedule Routine, Read Routine (OP Routine) 08/21/2021 1:58 PM NATIONAL SALES EXECUTIVE Anterior dislocation of right shoulder, sequela documented in this encounter Results * XR Shoulder Right 2 or More Views (08/21/2021 1:58 PM NATIONAL SALES EXECUTIVE) Anatomical Region Laterality Modality Upper Extremities, Shoulder Right Digi kelvin Radiography Narrative 08/21/2021 2:54 PM NATIONAL SALES EXECUTIVE Four views of the right shoulder are reviewed and interpreted. ??No acute fracture, subluxation/dislocation, or destructive osseous lesions. ??Joint effusion is appreciated. ??Patient is near skeletal maturity; remaining physes are preserved us Danii ZHAO IMG XR PROCEDURES Edite d Result - Final documented in this encounter Visit Diagnoses Diagnosis Anterior dislocation of right shoulder, sequela- Primary Glenoid labral tear, right, initial encounter documented in this encounter Care Teams Cleaning And Washing Equipment Operator Relationship Specialty Start Date End Date No, Physician PCP - General 08/21/21 09/28/21 documented as of this encounter
--- OUTSIDE RECORDS SUMMARY | 2024-07-19 01:16 | XMS_ITS | Continuity of Care Document ---
Author Organization [email or web address] Address [address] [place] [address] Phone Care Team Providers Care County Sheriff Name Role Phone Bebeto Bloom MD Unavailable Unavailable Advance Directives Directive Yes / No Effective Date File Name No Information Encounters Encounter Description Practice Location Reason(s) For Visit Diagnoses Date Provider Providers Copied on Encounter [email or web address], [address], [place], [place], [id number], [place] tel:[phone] [email or web address] No Information Wolf Tate. [address] [facility], [address], [place], [place], [id number], [place]. tel:[phone] Family History Family Member Type Diagnosis Age At Onset No Information Immunizations Vaccine Date Status Comments 41120 - Influenza administered Source: [place] Un[place] 21011 - DTaP_DTP_DT_PEDS, Hib administere d Source: Source Unspecified 97596 - Pneumococcal_PCV administered Natalie rce: Source Unspecified 95[address] - Influenza administered Source: [place] 269[address] - Pneumococcal_PCV administered Natalie rce: Source Unspecified 01387 - MMR administered Source: Source Unspecified 05451 - Varicella administered Source: [place]specified [address] - Hepatitis_B administered Source: Source Unspecified 05604 - Polio_OPV_IPV administered Source : Source Unspecified 85287 - Hepatitis_B administered Source: Source Unspecified 01316 - DTaP_DTP_DT_PEDS administered Natalie rce: Source Unspecified 55201 - Hib administered Source: Source Unspecified 25805 - Pneumococcal_PCV administered Natalie rce: Source Unspecified 90872 - DTaP_DTP_DT_PEDS administered Natalie rce: Source Unspecified 16361 - Hib administered Source: Source Unspecified [address]3469 - Polio_OPV_IPV administered Source : Source Unspecified [address] - Polio_OPV_IPV administered Source : Source Unspecified 10145 - DTaP_DTP_DT_PEDS administered Natalie rce: Source Unspecified 81623 - Hib administered Source: Source Unspecified 74253 - Pneumococcal_PCV administered Natalie rce: Source Unspecified Payers Payer name Insurance type Covered republican ID Authoriza tion(s) No Information Social History Type Description Quantity Date Captured Comments Sex Male Smoking Status No Information Chief Complaint And Reason For Visit No Information Reason For Referral Reason For Referral No Information History Of Present Illness Encounter Date Complaint History Of Prese nt Illness No Information Functional Status Date Functional Assessmen t No Information Instructions Date Instruction Additional Infor mation No Information Assessments Type Assessment Date No Information Patient Care Teams Name Effective Dates (start - stop) Status Members No Information
== END 2024-07-12 02:12 | disposition home or self-care (01) ==
PROVIDERS: Emergency Provider Emergency Medicine; PCP Pediatrics
DX: S43.004A Unspecified dislocation of right shoulder joint, initial encounter (principal); X50.0XXA Overexertion from strenuous movement or load, initial encounter
CPT/HCPCS: 23650; 73030; 99285; A9270; J2004